=== PATIENT | female | born 1995 | race Caucasian/White ===

== ENCOUNTER 2020-02-14 10:53 | Outpatient (CLI) | payer OTHER, SELFPAY ==
--- NOTE | ~2020-02-14 | US_ITS ---
EXAMINATION: US breast LT limited HISTORY: Six-month follow-up for probably benign left breast mass TECHNIQUE: Limited left breast ultrasound is performed. COMPARISON: 08/10/2019 FINDINGS: The previously described hypoechoic mass at the 6:00 location 1 cm from the nipple now has a cystic appearance and is decreased in size measuring up to 3 mm, previously 7 mm. In addition, ther e is an adjacent 5 mm cyst. No suspicious sonographically detected mass is identified. IMPRESSION: Benign left breast cysts. Continued follow-up physical examination is recommended. BI-RADS Category 2: Benign finding(s). Reviewed, dictated and finalized at location A. IMPRESSION: Benign left breast cysts. Continued follow-up physical examination is recommend ed. BI-RADS Category 2: Benign finding(s).
== END 2020-02-14 10:54 | disposition home or self-care (01) ==
LOC: ANHIMG 10:54
PROVIDERS: Visit Provider Obstetrics & Gynecology
DX: N63.20 Unspecified lump in the left breast, unspecified quadrant (principal)
CPT/HCPCS: 76642

== ENCOUNTER 2020-02-21 17:39 | Outpatient (CLI) | payer OTHER, SELFPAY | END 2020-02-21 17:40 | disposition home or self-care (01) | PROVIDERS: Visit Provider Obstetrics & Gynecology | DX: R10.2 Pelvic and perineal pain (principal); Z01.812 Encounter for preprocedural laboratory examination | CPT/HCPCS: 36415; 86850; 86900; 86901 ==

== ENCOUNTER 2020-02-22 02:14 | Outpatient (CLI) | payer OTHER, SELFPAY ==
[2020-02-22 18:39] LABS: SARS-CoV-2 RNA PCR Negative
== END 2020-02-22 02:15 | disposition home or self-care (01) ==
LOC: ANHCOVIDDT 02:15
PROVIDERS: Visit Provider Obstetrics & Gynecology
DX: Z01.812 Encounter for preprocedural laboratory examination (principal); Z11.59 Encounter for screening for other viral diseases
CPT/HCPCS: 87635; C9803; U0003

== ENCOUNTER 2020-02-24 01:47 | Day surgery (SDC) | payer OTHER, SELFPAY ==
[2020-02-21 09:27] VITALS: BMI 17.9
--- NOTE | 2020-02-22 08:09 | PM.IMHP ---
H&P: HPI History of Present Illness Chief complaint: Pelvic Pain Narrative: Talita Caldera is a 24 year old female in presents for diagnostic laparoscopy secondary to pelvic pain and dyspareunia. She had negative STD testing and has free fluid noted on her ultrasound. She complains of pain with intercourse and premenstrual discomfort. Risks and benefits of this procedure reviewed including but not exclusive of , aspiration pneumonia, bleeding, transfusion, perforation injury to bowel, bladder, ureters, or other internal organs with need for open laparotomy. She voiced good understanding. She had all questions answered. She received the [employer] handout entitled laparoscopy. She asked to proceed Review of Systems Review of Systems: All systems reviewed & are unremarkable except as noted in HPI and below PMFSH Social History Social History Years smoked: 8 Smoking status: Current every day smoker Tobacco type: cigarettes Substance use: current Substance use type: marijuana Last use: 02/20/2020 Spiritual care concerns: No Meds Home Medications and Allergies Home Medications Medication Instructions Recorded Confirmed Type hydroxyzine pamoate 25 mg PO Q6H PRN 02/21/20 02/21/20 History Allergies Allergy/AdvReac Type Severity Reaction Status Date / Time No Known Allergies Allergy Verified 02/21/20 09:27 Exam Const: General: no acute distress Eyes: General: appearance normal, both eyes and all related structures Neck: Neck: supple and no JVD Thyroid: thyroid normal Resp: Effort & Inspection: normal respiratory effort Auscultation: clear to auscultation bilaterally Cardio: Rate: regular rate Rhythm: regular rhythm GI: Inspection: non-distended GI Palp: Yes Soft to palpation, No Tenderness to palpation present (GI) and No Guarding due to palpation present (GI) Auscultation: normal bowel sounds : General: Yes bladder normal to palpation External Female Exam: normal external appearance Speculum Exam - Vagina: normal appearance of the vagina Speculum Exam - Cervix: Cervical tenderness present Bimanual exam- vagina & uterus: Uterine tenderness Bimanual Exam- Adnexa, other: tender Skin: General skin exam: no rashes or lesions noted Extrem: General: normal to inspection and no edema Psych: Mental Status: mental status grossly normal Affect: normal affect Assessment and Plan Additional Plan impression: Pelvic pain Plan: Diagnostic laparoscopy
--- NOTE | 2020-02-24 02:38 | WPDHPUPDATE1 ---
History and Physical Update Update Date/Time: 02/24/20 02:38 History and Physical has been reviewed, including an updated exam of the patient. There are NO changes in the patient's condition. Risks, benefits, and alternatives have been discussed and questions answered. Patient agrees to proceed with procedure.
--- NOTE | 2020-02-24 11:17 | P.PNAN_ITS ---
Anes - Initial Pre Proc Eval Procedure: Operation Date: 02/24/20 12:30 Proposed Procedures p Diagnostic Laparoscopy - Guerrero Sher MD Date/Time: 02/24/20 11:17 Surgeon: Guerrero Sher MD Pre Op Diagnosis: Pelvic Pain Patient Data Age: 24 Gender: F Height: 1.57 m Weight: 44.8 kg Allergies Allergy/AdvReac Type Severity Reaction Status Date / Time No Known Allergies Allergy Verified 02/21/20 09:27 Home Medications Medication Instructions Recorded Confirmed Type hydroxyzine pamoate 25 mg PO Q6H PRN 02/21/20 02/21/20 History hydrocodone-acetaminophen [[place]] 1 tablet PO Q4H PRN #30 tablet 02/24/20 Rx Patient hx anesthesia problems: none Family hx anesthesia problems: none [facility] Past Medical History Medical History (Updated 02/24/20 @ 11:18 by Ernesto Richter MD) Anxiety Arthritis Social History Social History Years smoked: 8 Smoking status: Current every day smoker Tobacco type: cigarettes Substance use: current Substance use type: marijuana Last use: 02/20/2020 Spiritual care concerns: No Anes - Eval Final PreProcedure Day of Procedure 02/24/20 11:17 Patient weight: normal Heart: regular rate and rhythm Lungs: clear to auscultation and normal air movement Airway: Mallampati scale class II Neurological: alert and oriented Last oral intake: >/= 8 hours ASA classification: II Emergent: no Anesthetic plan: proceed Anesthesia type and monitoring: general ETT Informed Consent: The patient's anesthetic plan and its attendant risks and benefits were discussed with the patient/family/POA. Questions were solicited and answers provided to the satisfaction of the patient/family/POA.
[2020-02-24] MEDS: ACETAMINOPHEN 500 MG TABLET 1000 MG PO (11:24)
[2020-02-24] MEDS: KETOROLAC 15 MG/ML VIAL (*BKC) IV PUSH (11:24)
--- NOTE | 2020-02-24 12:39 | PM.PROC ---
Procedure Note - Detailed Date of procedure: 02/24/20 Pre-op diagnosis: Pelvic Pain Surgeon: Guerrero Sher MD postop diagnosis: Pelvic pain/ bilateral ovarian cysts Procedure: Laparoscopic destruction of bilateral ovarian cysts EBL: 5cc Anesthesia: General endotracheal Complications: None Findings: [id number] of serosanguineous fluid. Normal-appearing uterus and tubes. Bilateral ovarian cysts. Normal-appearing appendix Procedure description: The patient was prepped draped in the normal sterile fashion placed in the dorsal lithotomy position. Under excellent general endotracheal anesthesia weighted speculum was placed in the posterior fornix of vagina. Anterior lip of the cervix was grasped with a single-tooth tenaculum. Souza's cannula was inserted to the cervix and attached to the single-tooth. This was to be used later for uterine manipulation. Next the bladder was emptied of clear urine with a red rubber catheter. A weighted speculum was removed and the gloves were changed. An infraumbilical incision made. Veress needle passed in the abdomen. Abdomen was filled with CO2 gas [id number]. 5Mm trocar was advanced in the abdomen under direct visualization assuring no injury. Patient placed in Trendelenburg and a suprapubic incision made. The 5mm trocar was advanced under direct visualization assuring no injury. The serosanguineous fluid was suctioned and removed from the pelvis. Bilateral ovarian cysts were noted. These were opened in linear fashion and drained of serous fluid. Irrigation was then undertaken until clear. Photo documentation was undertaken. No other abnormalities were seen. The lower site was removed. The gas removed from the abdomen. The incisions closed with 4 O Monocryl and glue. All sponge, needle, instrument counts were correct. There were no immediate complications
[2020-02-24 12:50] VITALS: BP 111/84; PULSE 100; RESP 15; TEMP 36.4; O2SAT 100
[2020-02-24] MEDS: LACTATED RINGERS 1,000 ML 30 ML IV CONT ×2 (12:50)
[2020-02-24 13:05] VITALS: BP 110/82; PULSE 93; RESP 14; O2SAT 100
[2020-02-24 13:20] VITALS: BP 111/84; PULSE 75; RESP 12; O2SAT 100
[2020-02-24 13:30] VITALS: BP 112/71; PULSE 74; RESP 14
[2020-02-24 14:00] VITALS: BP 107/67; PULSE 67; RESP 14
[2020-02-24 14:30] VITALS: BP 104/64; PULSE 66; RESP 14
--- NOTE | 2020-02-24 18:00 | SUR.PHASEII ---
1400; PT AWAKE AND ALERT. STATES PAIN MILD AT 4/10. DENIES NEED FOR PAIN MEDICINE AT THIS TIME ITS NOT THAT BAD 1430; PT RESTING QUIETLY. 1450; PT DRESSED AND READY TO GO. WAITING ON RIDE. LEFT MESSAGE FOR SISTER. 1505; PT'S SISTER CALLED BACK, SHE IS ON HER WAY.
== END 2020-02-24 15:40 | disposition home or self-care (01) ==
PROVIDERS: Visit Provider Obstetrics & Gynecology
PROC: (CPT 49320; principal; 2020-02-24 12:30)
DX: R10.2 Pelvic and perineal pain (principal); N83.202 Unspecified ovarian cyst, left side; N83.201 Unspecified ovarian cyst, right side; N94.10 Unspecified dyspareunia; F41.9 Anxiety disorder, unspecified; M19.90 Unspecified osteoarthritis, unspecified site; F17.210 Nicotine dependence, cigarettes, uncomplicated
CPT/HCPCS: 58662; A9270; J0330; J1100; J1170; J1885; J2250; J2405; J2704; J3010; J7120

== ENCOUNTER 2022-02-15 12:39 | Emergency (ER) | payer OTHER, SELFPAY ==
--- NOTE | ~2022-02-15 | US_ITS ---
EXAMINATION: US OB <=14 wk fetus w TV INDICATION: Vaginal bleeding. GA by LMP 13 weeks 3 days. AMOS by LMP 08/20/2022. TECHNIQUE: Sonography of the pelvis was performed by transabdominal and transvaginal techniques. COMPARISON: None. RESULT: Uterus: - Orientation: Anteverted - Size: 11.8 x 10.4 x 9.3 cm - Myometrium: homogeneous echogenicity . Gestation: - Intrauterine gestational sac: Single present - Embryo: Single present - [place] rump length: 7.6 cm, corresponding gestational age 13 weeks, 5 days -Gestational heart rate: present 138 bpm -Subgestational hematoma: Absent Right ovary: -Not visualized Left ovary: -Not visualized Pelvis free fluid: None. IMPRESSION: Single, live intrauterine gestation. Marginal placenta. Ovaries not visualized. Estimated Gestational Age: 13 weeks, 5 days by crown rump length. AMOS by ultrasound 08/18/2022. Reviewed, dictated and finalized at location K. IMPRESSION: Single, live intrauterine gestation. Marginal placenta. Ovaries not visualized. Estimated Gestational Age: 13 weeks, 5 days by crown rump length. AMOS by ultra sound 08/18/2022.
[2022-02-15 12:41] VITALS: BP 128/61; PULSE 115; RESP 16; TEMP 36.5; O2SAT 99
[2022-02-15 12:50] VITALS: BP 105/77; PULSE 83; RESP 18; TEMP 36.6; O2SAT 100
[2022-02-15 13:40] LABS: Basophils Absolute Auto 0.1 K/mm3 (0.0-0.1); Basophils Percent Auto 0.3 % (0.2-1.2); Eosinophils Absolute Auto 0.2 K/mm3 (0-0.3); Eosinophils Percent Auto 1.3 % (0-4.4); Hematocrit 35.1 % (37.0-47.0); Hemoglobin 11.7 g/dL (12.0-15.0); Immature Granulocyte Absolute 0.08 K/mm3 (0.00-0.031); Immature Granulocyte Percent A 0.5 % (0-0.5); Lymphocytes Percent Auto 10.9 % (18.3-44.2); Mean Corpuscular HGB Conc 33.3 g/dl (32-36); Mean Corpuscular Hemoglobin 30.2 pg (26-34); Mean Corpuscular Volume 90.5 fl (80-100); Mean Platelet Volume 10.1 fl (7.4-10.4); Monocytes Absolute Auto 1.1 K/mm3 (0.1-0.6); Monocytes Percent Auto 6.4 % (2.6-8.5); Neutrophils Absolute Auto 13.2 K/mm3 (1.3-6.7); Neutrophils Percent Auto 80.6 % (45.5-73.1); Platelet Count Result 225 k/mm3 (150-375); Red Blood Count 3.88 M/mm3 (4.2-5.4); Red Cell Distribution Width 13.2 % (11.5-14.5); White Blood Count 16.5 K/mm3 (4.5-10.0)
[2022-02-15 14:10] VITALS: BP 92/62; PULSE 78
[2022-02-15 14:11] VITALS: BP 99/62; PULSE 86
[2022-02-15 14:12] VITALS: BP 97/60; PULSE 102
[2022-02-15] MEDS: SODIUM CHLORIDE 0.9% IV 1,000 ML 999 ML IV CONT (14:38)
--- NOTE | 2022-02-15 14:38 | ED.PREGNANCY ---
HPI - General Chief complaint: Vaginal Bleeding <Ila Olmos PA-C - Last Filed: 02/15/22 16:47> Stated complaint: 13 wks vag bleed <LIN Huynh Last Filed: 02/15/22 16:47> Time Seen by Provider: 02/15/22 13:21 <Ila Olmos PA-C - Last Filed: 02/15/22 16:47> Source: patient <LIN Huynh Last Filed: 02/15/22 16:47> Mode of arrival: ambulatory <LIN Huynh Last Filed: 02/15/22 16:47> Limitations: no limitations <LIN Huynh Last Filed: 02/15/22 16:47> History of Present Illness HPI Narrative: This is a 26-year-old , about 13 weeks , that presents to the emergency department for vaginal bleeding present this morning. Reports the blood was pink. It has slowed since onset. Associated with some mild intermittent cramping. Denies fever or vomiting. <Ila Olmos PA-C - Last Filed: 02/15/22 16:47> Related Data Home medications: Home Medications Medication Instructions Recorded Confirmed hydroxyzine pamoate 25 mg capsule 25 mg PO Q6H PRN Anxiety 02/21/20 02/21/20 <Ila Olmos PA-C - Last Filed: 02/15/22 16:47> Allergies/Adverse reactions: Allergies Allergy/AdvReac Type Severity Reaction Status Date / Time No Known Allergies Allergy Verified 02/15/22 12:52 <Ila Olmos PA-C - Last Filed: 02/15/22 16:47> Review of Systems Review of Systems: CONSTITUTIONAL: Denies fever GASTROINTESTINAL: Denies abdominal pain, nausea, vomiting GENITOURINARY: Reports dysuria <LIN Huynh Last Filed: 02/15/22 16:47> All systems reviewed & are unremarkable except as noted in HPI and below <LIN Huynh Last Filed: 02/15/22 16:47> [facility] Past Medical History Medical History: Medical History (Updated 02/15/22 @ 16:44 by Ila Olmos PA-C) Anxiety Arthritis <Ila Olmos PA-C - Last Filed: 02/15/22 16:47> Social History Social History: Social History (Updated 02/15/22 @ 14:40 by Ila Olmos PA-C) Years smoked: 8 Smoking status: Former smoker Tobacco type: cigarettes Substance use: current Substance use type: marijuana Last use: 02/20/2020 Spiritual care concerns: No <Ila Olmos PA-C - Last Filed: 02/15/22 16:47> Exam Narrative: GENERAL: Well-appearing, well-nourished, and in no acute distress. HEAD: Normocephalic, atraumatic. EYES: EOMI. CHEST: Clear to auscultation. No respiratory distress. No wheezes rales or rhonchi HEART: Regular rate and rhythm. No murmur heard. Normal peripheral pulses. ABDOMEN: Soft, nontender, nondistended, normal active bowel sounds. No CVA tenderness EXTREMITIES: Normal range of motion. No edema. SKIN: Warm, dry, no rash. NEURO: No focal deficits. Alert and oriented x3. PSYCH: Normal mood and affect <Ila Olmos PA-C - Last Filed: 02/15/22 16:47> Course BAT LATHE OPERATOR/PA Physician Supervision For this patient encounter, I reviewed the BAT LATHE OPERATOR or PA documentation, treatment plan, and medical decision making <uHmble Brooks MD - Last Filed: 02/15/22 18:22> Consultations Consultation #1: Spoke with Dr. Morales about patient and work-up who will follow-up in clinic. <Ila Olmos PA-C - Last Filed: 02/15/22 16:47> Date: 02/15/22 <Ila Olmos PA-C - Last Filed: 02/15/22 16:47> Time: 16:47 <Ila Olmos PA-C - Last Filed: 02/15/22 16:47> Vital Signs Vital signs: Vital Signs Temperature 97.7 F 02/15/22 12:41 Pulse Rate 115 H 02/15/22 12:41 Respiratory Rate 16 02/15/22 12:41 Blood Pressure 128/61 02/15/22 12:41 Pulse Oximetry 99 02/15/22 12:41 Temperature 97.8 F 02/15/22 12:50 Pulse Rate 83 02/15/22 17:08 Respiratory Rate 16 02/15/22 17:08 Blood Pressure 98/63 L 02/15/22 17:08 Pulse Oximetry 100 02/15/22 17:08 Oxygen Delivery Room Air 02/15/22 12:50 <Ila Olmos PA-C - Last Filed:
[2022-02-15 14:45] LABS: Appearance Urine Slightly Cloudy (Clear); Bilirubin Urine Negative (Negative); Blood Urine 2+ (Negative); Color Urine Yellow (Yellow); Glucose Urine UA Negative (Negative); Ketones Urine Negative (Negative); Leukocyte Esterase Ur 2+ LEU/UL (Negative); Nitrate Urine Negative (Negative); Protein Urine Negative (Negative)
[2022-02-15 14:48] LABS: Add Urine Microscopic? YES
[2022-02-15 14:55] LABS: Bacteria Urine Trace /hpf; Mucus Urine Rare /lpf; Squamous Epithelial Cell Urine Many /hpf (Few); WBC Urine 51-75 /hpf
[2022-02-15 17:08] VITALS: BP 98/63; PULSE 83; RESP 16; O2SAT 100
== END 2022-02-15 17:10 | disposition home or self-care (01) ==
PROVIDERS: Physician Assistant; Emergency Provider Emergency Medicine
DX: O20.9 Hemorrhage in early pregnancy, unspecified (principal); O23.11 Infections of bladder in pregnancy, first trimester; N30.00 Acute cystitis without hematuria; Z3A.13 13 weeks gestation of pregnancy; M19.90 Unspecified osteoarthritis, unspecified site; Z87.891 Personal history of nicotine dependence
CPT/HCPCS: 36415; 76801; 76817; 81001; 84702; 85025; 85461; 87086; 96360; 99284; J7030

== ENCOUNTER 2022-02-16 06:14 | Emergency (ER) | payer OTHER, SELFPAY ==
--- NOTE | ~2022-02-16 | US_ITS ---
US OB <= 14 weeks fetus DATE: 02/16/2022 08:10 INDICATION: Worsening uterine bleeding and pelvic shift TECHNIQUE: Real-time imaging via transabdominal approach COMPARISON: 02/15/2022 obstetrical ultrasound FINDINGS: The uterus measures approximately 14 mm height, up to 9 cm AP dimension. Live [place] intrauterine gestation with heart rate of 153 bpm. Anterior placenta. No retropl acental hemorrhage is identified. The ovaries are not visualized. No abnormal pelvic free fluid collection is detected. [place]-rump length measurement of 8.02 cm is consistent with 14 weeks estimated gestational age +/- 1 week 2 days. IMPRESSION: No significant abnormality Reviewed, dictated and finalized at Location A. Reviewed, dictated and finalized at location A. IMPRESSION: No significant abnormality
[2022-02-16 06:39] VITALS: BP 114/76; PULSE 98; RESP 25; O2SAT 100
[2022-02-16 06:43] LABS: Basophils Absolute Auto 0.1 K/mm3 (0.0-0.1); Basophils Percent Auto 0.3 % (0.2-1.2); Eosinophils Absolute Auto 0.2 K/mm3 (0-0.3); Eosinophils Percent Auto 1.2 % (0-4.4); Hematocrit 36.2 % (37.0-47.0); Hemoglobin 12.2 g/dL (12.0-15.0); Immature Granulocyte Percent A 0.6 % (0-0.5); Lymphocytes Absolute Auto 2.09 K/mm3 (0.9-3.2); Lymphocytes Percent Auto 11.6 % (18.3-44.2); Mean Corpuscular HGB Conc 33.7 g/dl (32-36); Mean Corpuscular Volume 88.9 fl (80-100); Mean Platelet Volume 10.3 fl (7.4-10.4); Monocytes Absolute Auto 1.2 K/mm3 (0.1-0.6); Monocytes Percent Auto 6.7 % (2.6-8.5); Neutrophils Absolute Auto 14.4 K/mm3 (1.3-6.7); Neutrophils Percent Auto 79.6 % (45.5-73.1); Platelet Count Result 268 k/mm3 (150-375); Red Blood Count 4.07 M/mm3 (4.2-5.4); Red Cell Distribution Width 13.1 % (11.5-14.5)
[2022-02-16] MEDS: SODIUM CHLORIDE 0.9% IV 1,000 ML 999 ML IV CONT (07:32)
--- NOTE | 2022-02-16 07:50 | ED.GENADULT ---
HPI - General Adult General Chief complaint: Vaginal Bleeding <Hubmle Brooks MD - Last Filed: 02/16/22 17:22> Stated complaint: 13 wks preg, vag bleed <Humble Brooks MD - Last Filed: 02/16/22 17:22> Time Seen by Provider: 02/16/22 06:40 <Humble Brooks MD - Last Filed: 02/16/22 17:22> History of Present Illness HPI narrative: 18-year-old female who is approximately 14 weeks and follows up with Dr. Edgar Price presents to the emergency department for evaluation of worsening abdominal pain. Patient was evaluated emergency department yesterday and was diagnosed with a urinary tract infection. Patient states that the time she was having some vaginal spotting. Patient states she was awoken from her sleep with increased lower abdominal pain and uterine cramping. Patient states she has had increased vaginal bleeding. Patient states she has not yet started her antibiotic. <Humble Brooks MD - Last Filed: 02/16/22 17:22> Related Data Home medications: Home Medications Medication Instructions Recorded Confirmed hydroxyzine pamoate 25 mg capsule 25 mg PO Q6H PRN Anxiety 02/21/20 02/21/20 <Humble Brooks MD - Last Filed: 02/16/22 17:22> Allergies/adverse reactions: Allergies Allergy/AdvReac Type Severity Reaction Status Date / Time No Known Allergies Allergy Verified 02/15/22 12:52 <Humble Brooks MD - Last Filed: 02/16/22 17:22> Review of Systems Review of Systems: CONSTITUTIONAL: Denies fever, chills, or sweats. EYES: Denies visual changes, redness, or discharge. ENT: Denies rhinorrhea, congestion, sore throat, or otalgia. CARDIOVASCULAR: Denies chest pain, palpitations, or edema. RESPIRATORY: Denies cough or dyspnea. GASTROINTESTINAL: See HPI GENITOURINARY: See HPI SKIN: Denies rash or itching. MUSCULOSKELETAL: Denies back pain, joint pain, or myalgia. NEUROLOGIC: Denies headache, numbness, or weakness. <Humble Brooks MD - Last Filed: 02/16/22 17:22> [facility] Past Medical History Medical History: Medical History (Updated 02/16/22 @ 11:03 by Humble Brooks MD) Anxiety Arthritis <Humble Brooks MD - Last Filed: 02/16/22 17:22> Social History Social History: Social History (Updated 02/15/22 @ 14:40 by Ila Olmos PA-C) Years smoked: 8 Smoking status: Former smoker Tobacco type: cigarettes Substance use: current Substance use type: marijuana Last use: 02/20/2020 Spiritual care concerns: No <Humble Brooks MD - Last Filed: 02/16/22 17:22> Exam Narrative: APPEARANCE: Well appearing, no pain, no distress, well-nourished. HEAD: normocephalic, atraumatic. EYES: PERRLA/EOMI, conjunctivae clear. NOSE: Normal no drainage NECK: Supple. No adenopathy, no masses. RESPIRATORY: Airway patent, respirations nonlabored. Clear to auscultation bilaterally, no rales, rhonchi, wheezing. CARDIOVASCULAR: Regular rate and rhythm without murmurs rubs or gallops. ABDOMINAL: Soft, lower abdominal tenderness to palpation. MUSCULOSKELETAL: Moves all extremities. Strength/ROM intact, No edema, No calf tenderness. NEURO: Alert. Cranial nerves II through XII intact. SKIN: Warm, dry. Normal Color PSYCHIATRIC: Normal affect/mood. <Humble Brooks MD - Last Filed: 02/16/22 17:22> APPEARANCE: Well appearing, no pain, no distress, well-nourished. HEAD: normocephalic, atraumatic. EYES: PERRLA/EOMI, conjunctivae clear. NOSE: Normal no drainage NECK: Supple. No adenopathy, no masses. RESPIRATORY: Airway patent, respirations nonlabored. Clear to auscultation bilaterally, no rales, rhonchi, wheezing. CARDIOVASCULAR: Regular rate and rhythm without murmurs rubs or gallops. ABDOMINAL: Soft, lower abdominal tenderness to palpation. MUSCULOSKELETAL: Moves all extremities. Strength/ROM intact, No edema, No calf tenderness. NEURO: Alert. Cranial nerves II through XII intact. SKIN: Warm, dry. Normal Color PSYCHIATRIC: Normal affect/mood. PELVIC: N
== END 2022-02-16 11:36 | disposition home or self-care (01) ==
PROVIDERS: Emergency Medicine; Emergency Provider Emergency Medicine
DX: O20.9 Hemorrhage in early pregnancy, unspecified (principal); O26.892 Other specified pregnancy related conditions, second trimester; R10.9 Unspecified abdominal pain; O99.342 Other mental disorders complicating pregnancy, second trimester; F41.9 Anxiety disorder, unspecified; O99.891 Other specified diseases and conditions complicating pregnancy; M19.90 Unspecified osteoarthritis, unspecified site; Z3A.14 14 weeks gestation of pregnancy
CPT/HCPCS: 36415; 76801; 84702; 85025; 85461; 86850; 86900; 86901; 86920; 96361; 96365; 99284; J0131; J7030

== ENCOUNTER 2022-02-17 09:30 | Observation (INO) | payer OTHER, SELFPAY ==
[2022-02-17] VITALS (56 sets, daily range): BP systolic 88–109; BP diastolic 45–78; PULSE 51–146; RESP 9–35; TEMP 36.3–37.6; O2SAT 82–100; BMI 19.8
--- NOTE | ~2022-02-17 | US_ITS ---
EXAMINATION: US OB <= 14 weeks fetus DATE: 02/17/2022 10:45 INDICATION: Vaginal bleeding. TECHNIQUE: Real-time transabdominal pelvic ultrasound was performed. COMPARISON: Ultrasound 02/16/2022, 02/15/2022 FINDINGS: The uterus measures 15.8 x 7.4 x 7.9 cm. There is a gestational sac in the cervix. The crown ru mp length measures 7.6 cm, which correlates with an estimated gestational age of 13 weeks and 5 day(s ) (+/-) 1 week(s) and 2 day(s). heart motion is identified measuring 133 beats per minute (bpm) by M-mode Doppler. There is thickening of the endometrial complex to 5.2 cm, consistent with hematom a. The ovaries are not visualized. There is no free fluid in the pelvis. IMPRESSION: 1. New hematoma in the endometrial complex with interval displacement of the gestational sac with li ving fetus to the cervix. Reviewed, dictated and finalized at location A. IMPRESSION: 1. New hematoma in the endometrial complex with interval displacement of the g estational sac with living fetus to the cervix.
--- NOTE | 2022-02-17 09:44 | ED.FEMALEGU ---
HPI - Female Genitourinary General Chief complaint: Vaginal Bleeding <LIN Talley Last Filed: 02/17/22 19:05> Stated complaint: vaginal bleeding <LIN Talley Last Filed: 02/17/22 19:05> Time Seen by Provider: 02/17/22 09:33 <LIN Talley Last Filed: 02/17/22 19:05> Source: patient and old records reviewed <LIN Talley Last Filed: 02/17/22 19:05> Mode of arrival: ambulatory <LIN Talley Last Filed: 02/17/22 19:05> Limitations: no limitations <LIN Talley Last Filed: 02/17/22 19:05> History of Present Illness HPI Narrative: Patient is a 26 y/o female, , who presents to the ED with c/o vaginal bleeding. Patient is approximately 14 weeks gestation. She has been seen in the ED the past 2 days for abdominal pain and vaginal spotting and was diagnosed with UTI. This morning, the bleeding and pain became more significant and heavy. Pain contraction-like, with severe cramping every few minutes in lower abdomen and lower back. She passed one large blood clot on the ED stretcher upon arrival. She denies passing any large clots at home prior to her arrival. Denies any fever, chills, N/V. Has not taken anything for pain prior to arrival. Has not started antibiotics still for UTI. Patient's OBGYN is Dr. Edgar Price. <LIN Talley Last Filed: 02/17/22 19:05> Related Data Home medications: Home Medications Medication Instructions Recorded Confirmed hydroxyzine pamoate 25 mg capsule 25 mg PO Q6H PRN Anxiety 02/21/20 02/21/20 <LIN Talley Last Filed: 02/17/22 19:05> Allergies/Adverse reactions: Allergies Allergy/AdvReac Type Severity Reaction Status Date / Time No Known Allergies Allergy Verified 02/15/22 12:52 <LIN Talley Last Filed: 02/17/22 19:05> Review of Systems Review of Systems: CONSTITUTIONAL: Denies fever, chills, or sweats. CARDIOVASCULAR: Denies chest pain. RESPIRATORY: Denies dyspnea. GASTROINTESTINAL: Reports lower abdominal cramping. Denies nausea, vomiting. GENITOURINARY: Reports vaginal bleeding with clots. Denies dysuria or hematuria. MUSCULOSKELETAL: Reports low back pain. <Nely Marin PA-C - Last Filed: 02/17/22 19:05> All systems reviewed & are unremarkable except as noted in HPI and below <Nely Marin PA-C - Last Filed: 02/17/22 19:05> PMFSH Past Medical History Medical History: Medical History (Updated 02/17/22 @ 13:17 by Nely Marin PA-C) Anxiety Arthritis Sponge kidney <Nely Marin PA-C - Last Filed: 02/17/22 19:05> Surgical History Surgical History: Surgical History (Updated 02/17/22 @ 18:55 by Nely Marin PA-C) History of D&C <Nely Marin PA-C - Last Filed: 02/17/22 19:05> Social History Social History: Social History Years smoked: 8 Smoking status: Former smoker Tobacco type: cigarettes Substance use: current Substance use type: marijuana Last use: 02/20/2020 Spiritual care concerns: No <Nely Marin PA-C - Last Filed: 02/17/22 19:05> Exam Narrative: GENERAL: Well appearing, well-nourished, non-toxic, in moderate acute distress. HEAD: Normocephalic, atraumatic. NECK: Supple. No adenopathy, no masses. RESPIRATORY: Airway patent, respirations nonlabored. Clear to auscultation bilaterally, no rales, rhonchi, wheezing. CARDIOVASCULAR: Tachycardic w/ regular rhythm without murmurs, rubs, or gallops. Peripheral pulses 2+ and equal bilaterally. ABDOMINAL: Soft, tenderness to palpation in lower abdomen, nondistended, no hepatosplenomegaly. Normoactive BS. MUSCULOSKELETAL: Moves all extremities. Strength/ROM intact without gross deformities. SKIN: Warm, dry, normal color. No rashes. NEURO: A&O X3. Speech clear. Cranial nerves II-XII grossly intact. Steady gait. No ataxic movements. PSYCHIATRIC: Appropriate mood and affect. [place]
[2022-02-17] MEDS: SODIUM CHLORIDE 0.9% IV 1,000 ML 999 ML IV CONT ×3 (09:49→12:45)
[2022-02-17] MEDS: ONDANSETRON INJ 4 MG/2 ML VIAL IV PUSH (09:49)
[2022-02-17 10:00] LABS: Hematocrit 36.1 % (37.0-47.0); Hemoglobin 12.1 g/dL (12.0-15.0); Mean Corpuscular HGB Conc 33.5 g/dl (32-36); Mean Corpuscular Hemoglobin 30.5 pg (26-34); Mean Corpuscular Volume 90.9 fl (80-100); Mean Platelet Volume 10.5 fl (7.4-10.4); Platelet Count Result 227 k/mm3 (150-375); Red Blood Count 3.97 M/mm3 (4.2-5.4); Red Cell Distribution Width 12.9 % (11.5-14.5); White Blood Count 18.8 K/mm3 (4.5-10.0)
[2022-02-17] MEDS: MORPHINE SULFATE (*CRX) 4 MG/ML INJ IV PUSH (10:19)
[2022-02-17 10:28] LABS: Alanine Aminotransferase 14 U/L (6-35); Albumin Level 3.5 g/dL (3.5-5.1); Alkaline Phosphatase 81 U/L (38-126); Anion Gap 9 mmol/L (8-16); Aspartate Amino Transferase 21 U/L (14-36); Bilirubin,Total 0.5 mg/dL (0.2-1.3); Blood Urea Nitrogen 8 mg/dL (7-17); Calcium 8.3 mg/dL (8.4-10.2); Carbon Dioxide 19 mmol/L (22-30); Chloride 104 mmol/L (98-107); Estimated Glomerular Filt Rate > 60; Glucose 130 mg/dL (65-110); Sodium 132 mmol/L (137-145)
[2022-02-17 11:01] LABS: Band Neutrophils Percent 23 % (0-6); Lymphocytes Absolute Manual 1.12 K/mm3 (1.1-4.5); Lymphocytes Percent Manual 6 % (18-44); Monocytes Absolute Manual 0.56 K/mm3 (0.1-0.90); Monocytes Percent Manual 3 % (3-9); Neutrophils Percent Manual 68 % (46-73); Platelet Estimate Adequate (Adequate); Total Cells Counted 100
[2022-02-17 11:02] LABS: Hyperchromasia 1+ (NORMAL)
[2022-02-17] MEDS: HYDROmorphone HCL INJ (*CRX) 1 MG/ML SYR IV PUSH (11:20)
--- NOTE | 2022-02-17 12:00 | PM.IMHP ---
H&P: HPI History of Present Illness Date/Time: 02/17/22 12:00 Chief Complaint: Bleeding and cramping in Narrative: 26 y/o at 14 weeks gestation presenting with cramping and bleeding. Blood type Bpos. Ultrasound showed gestational sac and embryo in the cervix. Review of Systems Review of Systems: All systems reviewed & are unremarkable except as noted in HPI and below PMFSH Past Medical History Medical History (Updated 02/17/22 @ 12:04 by Jordy Morales MD) Anxiety Arthritis Sponge kidney Surgical History Surgical History History of D&C No pertinent past surgical history Social History Social History Years smoked: 8 Smoking status: Former smoker Tobacco type: cigarettes Substance use: current Substance use type: marijuana Last use: 02/20/2020 Spiritual care concerns: No Meds Home Medications and Allergies Home Medications Medication Instructions Recorded Confirmed Type hydroxyzine pamoate 25 mg capsule 25 mg PO Q6H PRN Anxiety 02/21/20 02/21/20 History hydrocodone 5 mg-acetaminophen 325 1 tablet PO Q4H PRN pain #30 tabs 02/24/20 Rx mg tablet ([place]) Allergies Allergy/AdvReac Type Severity Reaction Status Date / Time No Known Allergies Allergy Verified 02/15/22 12:52 Vital Signs Vital Signs - 24 hr 02/17/22 09:42 02/17/22 09:45 02/17/22 09:49 Pulse Rate 130 H 139 H 121 H Respiratory Rate 26 H 29 H 26 H Blood Pressure 109/63 Pulse Oximetry 99 99 100 02/17/22 10:19 02/17/22 10:39 02/17/22 10:45 Pulse Rate 99 99 89 Respiratory Rate 30 H 20 16 Blood Pressure Pulse Oximetry 100 100 100 02/17/22 11:23 Pulse Rate 91 Respiratory Rate 12 Blood Pressure 99/65 L Pulse Oximetry 100 Exam : Other: Speculum exam: Gestational sac in vaginal vault. This was grasped with a ring forceps. Sac ruptured with clear fluid. Embryo delivered spontaneously. Placenta was grasped with ring forceps and delivered intact. Bedside ultrasound exam transabdominally showed empty uterus afterward. Hemostasis good. EBL 150 mL. H&P: Results Labs Labs: Short CBC 02/17/22 Range/Units 09:47 WBC 18.8 H (4.5-10.0) K/mm3 Hgb 12.1 (12.0-15.0) g/dL Hct 36.1 L (37.0-47.0) % Plt Count 227 (150-375) k/mm3 BMP 02/17/22 10:12 Sodium 132 L Potassium 3.0 L Chloride 104 Carbon Dioxide 19 L BUN 8 Creatinine 0.50 L Glucose 130 H Calcium 8.3 L Liver Function 02/17/22 Range/Units 10:12 Total Bilirubin 0.5 (0.2-1.3) mg/dL AST 21 (14-36) U/L ALT 14 (6-35) U/L Alkaline Phosphatase 81 (38-126) U/L Albumin 3.5 (3.5-5.1) g/dL Assessment and Plan Assessment and plan (1) Spontaneous : Code(s): O03.9 - Complete or unspecified spontaneous without complication Status: Acute Assessment and Plan: A: SAB at 14 weeks, completed. P: Reviewed instructions, precautions in detail. Home to f/u 1-2 weeks in office.
[2022-02-17 12:58] LABS: Hematocrit 26.4 % (37.0-47.0); Hemoglobin 9.1 g/dL (12.0-15.0)
[2022-02-17] MEDS: miSOPROStol 200 MCG TABLET 800 MCG RECTAL (13:08)
[2022-02-17] MEDS: POTASSIUM CHLORIDE INJ 40 MEQ in SODIUM CHLORIDE 0.9% IV 500 ML 130 MEQ IVPB (13:18)
--- NOTE | 2022-02-17 14:30 | OBADM ---
This patient, Talita Caldera, admitted to the OB room OB Post 111 for observation. Patient/family oriented to hospital policies and general routines including ID bracelet, bed and alarms, visiting hours, pain management, procedures, bathroom and other care routines, personal items, smoking policy, room service/diet, and visiting hours. Patient/Family are encouraged to report perceived risks to care and to ask questions if they do not understand what they are told or what they should do.
[2022-02-17] MEDS: SODIUM CHLORIDE 0.9% IV 1,000 ML 100 ML IV CONT ×2 (14:48→20:01)
[2022-02-17 17:03] LABS: Hematocrit 20.7 % (37.0-47.0)
--- NOTE | 2022-02-17 18:39 | PC.NURSE ---
Dr. Morales at bedside to discuss plan of care patient verbalizes understanding.
--- NOTE | 2022-02-17 18:46 | PM.GYNPNOP ---
COORDINATE MEASURING MACHINE PROGRAMMER - A/P Assessment and plan (1) Spontaneous in first trimester: Code(s): O03.9 - Complete or unspecified spontaneous without complication Status: Acute Assessment and Plan: A: S/p complete spontaneous at 14 weeks, with associated hemorrhage and resultant anemia. P: Observe overnight. I offered 1 unit PRBC. Reviewed risks, benefits and alternatives in detail. She and her partner agree. (2) Acute blood loss anemia: Code(s): D62 - Acute posthemorrhagic anemia Status: Acute Time Spent With Patient Time with patient: less than 15 minutes COORDINATE MEASURING MACHINE PROGRAMMER- PN:Subj Post-Op Subjective Date/time seen: 02/17/22 18:46 Has headache. No shortness of breath or chest pain. Bleeding was brisk before arrival and for a while in the ED, but has really tapered now. Pain is OK. Was asking for food. COORDINATE MEASURING MACHINE PROGRAMMER - PN: Obj Data Vital Signs Vital Signs: Vital Signs - 24 hr 02/17/22 09:42 02/17/22 09:45 02/17/22 09:49 Temperature Pulse Rate 130 H 139 H 121 H Respiratory Rate 26 H 29 H 26 H Blood Pressure 109/63 Pulse Oximetry 99 99 100 Oxygen Delivery 02/17/22 10:19 02/17/22 10:39 02/17/22 10:45 Temperature Pulse Rate 99 99 89 Respiratory Rate 30 H 20 16 Blood Pressure Pulse Oximetry 100 100 100 Oxygen Delivery 02/17/22 11:23 02/17/22 11:09 02/17/22 11:15 Temperature Pulse Rate 91 107 H 118 H Respiratory Rate 12 27 H 23 H Blood Pressure 99/65 L Pulse Oximetry 100 100 100 Oxygen Delivery 02/17/22 11:24 02/17/22 11:30 02/17/22 11:31 Temperature Pulse Rate 95 97 89 Respiratory Rate 9 L 25 H 19 Blood Pressure 99/65 L 103/71 Pulse Oximetry 99 97 100 Oxygen Delivery 02/17/22 11:51 02/17/22 12:21 02/17/22 13:31 Temperature Pulse Rate 92 110 H 113 H Respiratory Rate 21 H 17 24 H Blood Pressure 91/62 L Pulse Oximetry 99 Oxygen Delivery 02/17/22 12:51 02/17/22 13:16 02/17/22 13:46 Temperature Pulse Rate 112 H 139 H 97 Respiratory Rate 21 H 35 H 16 Blood Pressure 92/56 L Pulse Oximetry 100 100 Oxygen Delivery 02/17/22 13:47 02/17/22 14:00 02/17/22 14:01 Temperature Pulse Rate 101 H 107 H 111 H Respiratory Rate 18 17 19 Blood Pressure 91/57 L Pulse Oximetry 99 100 97 Oxygen Delivery 02/17/22 14:20 02/17/22 14:21 02/17/22 16:41 Temperature Pulse Rate 146 H 104 H Respiratory Rate Blood Pressure 105/78 89/47 L Pulse Oximetry 82 L Oxygen Delivery 02/17/22 14:30 02/17/22 16:30 02/17/22 14:30 Temperature 36.9 C 36.3 C L Pulse Rate Respiratory Rate Blood Pressure Pulse Oximetry Oxygen Delivery Room Air Intake/Output Intake/Output: Intake & Output 02/14/22 02/15/22 02/16/22 02/17/22 23:59 23:59 23:59 23:59 Intake Total 3100 Balance 3100 Meds/Results Medications: Active Medications Generic Name Dose Route Start Last Admin Trade Name Freq PRN Reason Stop Dose Admin Sodium Chloride 1,000 mls @ 100 mls/hr 02/17/22 14:48 02/17/22 14:48 Normal Saline Iv IV CONT 100 mls/hr .Q10H [place] Administration Radiology Results: ITS Impressions Ultrasound 02/17/22 10:48 IMPRESSION: 1. New hematoma in the endometrial complex with interval displacement of the gestational sac with living fetus to the cervix. Labs CBC & Chem 7: 02/17/22 16:41 02/17/22 10:12 Labs: Laboratory Results - last 24 hr 02/17/22 02/17/22 02/17/22 09:47 09:49 10:12 WBC 18.8 H RBC 3.97 L Hgb 12.1 Hct 36.1 L MCV 90.9 MCH 30.5 MCHC 33.5 RDW 12.9 Plt Count 227 MPV 10.5 H Immature Gran % (Auto) Not Reportable Neut % (Auto) Not Reportable Lymph % (Auto) Not Reportable [place] % (Auto) Not Reportable Eos % (Auto) Not Reportable Baso % (Auto) Not Reportable Lymph # (Auto) Not Reportable [place] # (Auto) Not Reportable Eos # (Auto) Not Reportable Baso # (Aut
[2022-02-17] MEDS: ACETAMINOPHEN 500 MG TABLET 1000 MG PO (21:28)
[2022-02-18 00:40] VITALS: RESP 16; TEMP 36.6
[2022-02-18 00:44] VITALS: BP 94/52; PULSE 87
[2022-02-18 00:59] LABS: Hematocrit 22.3 % (37.0-47.0); Hemoglobin 7.4 g/dL (12.0-15.0)
--- NOTE | 2022-02-18 02:06 | PC.NURSE ---
Discussed plan of care with pt for additional blood transfusion. Pt states she feels much better and declines transfusion at this time. Will continue to monitor.
[2022-02-18 04:36] VITALS: PULSE 88; O2SAT 95
[2022-02-18 04:37] VITALS: BP 91/50; PULSE 84; PULSE 86; PULSE 87; O2SAT 94; O2SAT 95
[2022-02-18 04:39] VITALS: BP 91/50; PULSE 84; RESP 14; TEMP 36.6; O2SAT 96
[2022-02-18] MEDS: ACETAMINOPHEN 500 MG TABLET 1000 MG PO (06:37)
[2022-02-18 06:40] VITALS: BP 106/58; PULSE 95; RESP 18; TEMP 36.8
--- NOTE | 2022-02-18 07:35 | PC.NURSE ---
Pt states headache has resolved. Denies any other needs at this time. Yesenia(SHARE) at bedside with pt at this time.
--- NOTE | 2022-02-18 08:50 | PC.NURSE ---
in dept, report given. NNO's at this time. going to see pt.
--- NOTE | 2022-02-18 09:03 | PM.GYNPNOP ---
BUSINESS AGENT - A/P Assessment and plan (1) Spontaneous in first trimester: Code(s): O03.9 - Complete or unspecified spontaneous without complication Status: Acute Assessment and Plan: A: SAB completed. Bleeding minimal. P: Home to f/u 2 weeks. Iron supplementation. We reviewed instructions and precautions in detail. She is considering restarting her antidepressant and contacting the prescriber, her PCP. (2) Acute blood loss anemia: Code(s): D62 - Acute posthemorrhagic anemia Status: Acute Time Spent With Patient Time: Total time spent is greater than 50% in coordination of care (as documented) at patient's floor/unit and/or counseling patient: Time with patient: less than 15 minutes BUSINESS AGENT- PN:Selena Post-Op Subjective Date/time seen: 02/18/22 09:03 Feels better this morning. Intermittent headache responds to Tylenol. She received one unit of PRBC, declined a second. Has minimal vaginal bleeding. She says she has a prescription for an antidepressant at home but doesn't take it. Would like to go home. Exam GI: Other: ABD soft, nontender Extrem: Other: EXT nontender, no edema BUSINESS AGENT - PN: Obj Data Vital Signs Vital Signs: Vital Signs - 24 hr 02/17/22 09:42 02/17/22 09:45 02/17/22 09:49 Temperature Pulse Rate 130 H 139 H 121 H Respiratory Rate 26 H 29 H 26 H Blood Pressure 109/63 Pulse Oximetry 99 99 100 Oxygen Delivery 02/17/22 10:19 02/17/22 10:39 02/17/22 10:45 Temperature Pulse Rate 99 99 89 Respiratory Rate 30 H 20 16 Blood Pressure Pulse Oximetry 100 100 100 Oxygen Delivery 02/17/22 11:23 02/17/22 11:09 02/17/22 11:15 Temperature Pulse Rate 91 107 H 118 H Respiratory Rate 12 27 H 23 H Blood Pressure 99/65 L Pulse Oximetry 100 100 100 Oxygen Delivery 02/17/22 11:24 02/17/22 11:30 02/17/22 11:31 Temperature Pulse Rate 95 97 89 Respiratory Rate 9 L 25 H 19 Blood Pressure 99/65 L 103/71 Pulse Oximetry 99 97 100 Oxygen Delivery 02/17/22 11:51 02/17/22 12:21 02/17/22 13:31 Temperature Pulse Rate 92 110 H 113 H Respiratory Rate 21 H 17 24 H Blood Pressure 91/62 L Pulse Oximetry 99 Oxygen Delivery 02/17/22 12:51 02/17/22 13:16 02/17/22 13:46 Temperature Pulse Rate 112 H 139 H 97 Respiratory Rate 21 H 35 H 16 Blood Pressure 92/56 L Pulse Oximetry 100 100 Oxygen Delivery 02/17/22 13:47 02/17/22 14:00 02/17/22 14:01 Temperature Pulse Rate 101 H 107 H 111 H Respiratory Rate 18 17 19 Blood Pressure 91/57 L Pulse Oximetry 99 100 97 Oxygen Delivery 02/17/22 14:20 02/17/22 14:21 02/17/22 16:41 Temperature Pulse Rate 146 H 104 H Respiratory Rate Blood Pressure 105/78 89/47 L Pulse Oximetry 82 L Oxygen Delivery 02/17/22 20:06 02/17/22 20:07 02/17/22 20:12 Temperature Pulse Rate 114 H Respiratory Rate Blood Pressure 88/45 L Pulse Oximetry 96 98 Oxygen Delivery 02/17/22 20:13 02/17/22 20:17 02/17/22 20:22 Temperature Pulse Rate 115 H Respiratory Rate Blood Pressure 100/52 L Pulse Oximetry 98 100 Oxygen Delivery 02/17/22 20:27 02/17/22 20:28 02/17/22 20:32 Temperature Pulse Rate 108 H Respiratory Rate Blood Pressure 95/53 L Pulse Oximetry 100 100 Oxygen Delivery 02/17/22 20:35 02/17/22 20:40 02/17/22 20:42 Temperature Pulse Rate Respiratory Rate Blood Pressure Pulse Oximetry 96 99 100 Oxygen Delivery 02/17/22 20:47 02/17/22 20:52 02/17/22 20:57 Temperature Pulse Rate Respiratory Rate Blood Pressure Pulse Oximetry 100 99 100 Oxygen Delivery 02/17/22 20:59 02/17/22 21:02 02/17/22 21:07 Temperature Pulse Rate 111 H Respiratory Rate Blood Pressure 102/54 L Pulse Oximetry 100 100 Oxygen Delivery 02/17/22 21:12 02/17/22 21:17 02/17/22 21:22 Temperature Pulse Rate Respiratory Rate Blood Pressure Pu
--- NOTE | 2022-02-18 09:21 | PC.NURSE ---
Orders to dc home. Pt resting at this time. Wants to try to nap before going. Pt encouraged to call out when ready and staff can remove IV and help pt prep to go home. Denies any needs at this time. Call light within reach.
--- NOTE | 2022-02-18 10:05 | PC.NURSE ---
Pt called out stating she was ready to go home.
--- NOTE | 2022-02-19 12:26 | PC.NURSE ---
02/18/22 0730 Met with pt and FOB; both shared sadness an questions about why and it's not fair . talked about going home today, and talking with her children. encouraged mother to take the time she needs to recover physically, and emotionally. Offered Share support, encouraged the support group; mother signed the Share consent for f/u once she is at home; plan to call her tomorrow.
--- NOTE | 2022-02-24 14:25 | PC.NURSE ---
02/24/22 [employer] office notified of this mother's delivery, SAB on 02/17/22.
== END 2022-02-18 10:20 | disposition home or self-care (01) ==
LOC: ANHED 13:18 → ANHOBPP 13:51
PROVIDERS: Physician Assistant; Admitting Provider Obstetrics & Gynecology; Emergency Provider Emergency Medicine; Visit Provider Obstetrics & Gynecology
DX: O03.9 Complete or unspecified spontaneous abortion without complication (principal); D62 Acute posthemorrhagic anemia; Z3A.14 14 weeks gestation of pregnancy; Z87.891 Personal history of nicotine dependence; F12.90 Cannabis use, unspecified, uncomplicated
CPT/HCPCS: 36415; 36430; 76801; 80053; 84702; 85014; 85018; 85025; 86850; 86900; 86901; 86920; 88305; 96360; 96361; 96374; 96375; 99285; A9270; G0378; G0379; J0131; J1170; J2270; J2405; J3480; J7030; J7040; P9016

== ENCOUNTER 2022-02-23 19:09 | Inpatient (IN) | payer OTHER, SELFPAY ==
[2022-02-23] VITALS (11 sets, daily range): BP systolic 93–119; BP diastolic 57–98; PULSE 80–134; RESP 12–26; TEMP 36.8–37.3; O2SAT 99–100
--- NOTE | 2022-02-23 19:14 | ED.FEMALEGU ---
HPI - Female Genitourinary General Chief complaint: Vaginal Bleeding Stated complaint: vaginal bleeding Time Seen by Provider: 02/23/22 19:13 Source: patient and family Mode of arrival: ambulatory Limitations: no limitations History of Present Illness HPI Narrative: 26 years old white female came from home by private car complaining of severe vaginal bleeding 2 hours prior to arrival to the emergency room. Patient is 5, para 2, abortions 3. Last miscarriage was on the of this month. Patient was admitted to the hospital because of heavy bleeding, received 1 unit of blood at that time, got discharged on the . Patient was doing okay since, last night had massive vaginal bleeding with blood clots, stopped overnight, and also during daytime until 5 PM which is 2 hours ago started to have massive bleeding again with blood clots. She denies any fever, chills, nausea, vomiting, lightheadedness, dizziness. Related Data Home Medications Medication Instructions Recorded Confirmed hydroxyzine pamoate 25 mg capsule 25 mg PO Q6H PRN Anxiety 02/21/20 02/21/20 Allergies Allergy/AdvReac Type Severity Reaction Status Date / Time No Known Allergies Allergy Verified 02/23/22 19:20 Review of Systems Review of Systems: All systems reviewed & are unremarkable except as noted in HPI and below PMFSH Past Medical History Medical History Anxiety Arthritis Sponge kidney Surgical History Surgical History History of D&C Social History Social History Years smoked: 8 Smoking status: Former smoker Tobacco type: cigarettes Substance use: current Substance use type: marijuana Last use: 02/20/2020 Spiritual care concerns: No Exam Narrative: General appearance: Well-developed, well-nourished Skin: Pale Chest and respiratory: Airway patent, no respiratory distress, no accessory muscle use Heart: Tachycardia Abdomen: Soft, mild diffuse suprapubic tenderness, no organomegaly, quiet bowel sounds Vascular: Normal peripheral pulses, normal capillary refill. Neurologic: Alert and oriented ?3, : External Female Exam: normal external appearance Speculum Exam - Vagina: vaginal bleeding (Large blood clots, golf ball size, massive bleeding, keeps coming without s) Speculum Exam - Cervix: normal appearance of the cervix (I could not see the cervix because of the massive VaG bleed) Course Consultations Consultation #1: DR HEDRICK Date: 02/23/22 Time: 20:25 Critical Care Time Critical Care Time Critical Care Time: Yes Total Critical Care Time: 50 Discharge Plan Discharge Patient Disposition: Still a Patient Additional Instructions: Patient to go to the OR, discussed with Dr. HEDRICK Prescriptions: No Action hydroxyzine pamoate 25 mg Capsule 25 mg PO Q6H PRN (Reason: Anxiety) hydrocodone-acetaminophen [[place]] 5-325 mg tablet 1 tablet PO Q4H PRN (Reason: pain) Qty: 30 0RF ferrous sulfate 325 mg (65 mg iron) tablet 325 mg PO DAILY Qty: 30 0RF Follow-up/Referrals: PHYSICIAN,RETAIL OPERATIONS MANAGER [Primary Care Provider] -
[2022-02-23 19:33] LABS: Basophils Absolute Auto 0.1 K/mm3 (0.0-0.1); Basophils Percent Auto 0.4 % (0.2-1.2); Eosinophils Absolute Auto 0.7 K/mm3 (0-0.3); Eosinophils Percent Auto 3.4 % (0-4.4); Hematocrit 23.6 % (37.0-47.0); Hemoglobin 7.6 g/dL (12.0-15.0); Immature Granulocyte Absolute 0.73 K/mm3 (0.00-0.031); Immature Granulocyte Percent A 3.7 % (0-0.5); Immature Platelet Fraction Pct 9.4 % (0.9-11.2); Lymphocytes Absolute Auto 4.04 K/mm3 (0.9-3.2); Lymphocytes Percent Auto 20.5 % (18.3-44.2); Mean Corpuscular HGB Conc 32.2 g/dl (32-36); Mean Corpuscular Hemoglobin 29.7 pg (26-34); Mean Corpuscular Volume 92.2 fl (80-100); Mean Platelet Volume 11.1 fl (7.4-10.4); Monocytes Absolute Auto 1.9 K/mm3 (0.1-0.6); Monocytes Percent Auto 9.6 % (2.6-8.5); Neutrophils Absolute Auto 12.3 K/mm3 (1.3-6.7); Neutrophils Percent Auto 62.4 % (45.5-73.1); Nucleated Red Blood Cells Absolute Auto 0.1 K/mm3 (0.0-0.012); Nucleated Red Blood Cells Perc 0.3 % (0.0-0.2); Platelet Count Result 289 k/mm3 (150-375); Red Blood Count 2.56 M/mm3 (4.2-5.4); Red Cell Distribution Width 14.3 % (11.5-14.5); White Blood Count 19.7 K/mm3 (4.5-10.0)
[2022-02-23] MEDS: SODIUM CHLORIDE 0.9% IV 2,000 ML 999 ML IV CONT (19:48)
[2022-02-23] MEDS: TRANEXAMIC ACID 1,000MG/ISO100 1,000 MG/100 ML BAG 200 MG IVPB (20:16)
--- NOTE | 2022-02-23 20:37 | WPDANESEPP ---
Anes - Eval Pre Procedure Procedure: Operation Date: 02/23/22 21:00 Proposed Procedures p D&C Suction and Bao Day MD Date/Time: 02/23/22 20:37 Pre Op Diagnosis: vaginal bleeding Patient Data Age: 26 Gender: F Height: 1.57 m Weight: 48 kg Last Vital Signs Temp 37.3 C 02/23/22 19:15 Pulse 134 H 02/23/22 19:15 Resp 26 H 02/23/22 19:15 BP 108/68 02/23/22 19:15 Pulse Ox 100 02/23/22 19:15 O2 Del Method Room Air 02/23/22 19:15 Allergies Allergy/AdvReac Type Severity Reaction Status Date / Time No Known Allergies Allergy Verified 02/23/22 19:20 Home Medications Medication Instructions Recorded Confirmed Type hydroxyzine pamoate 25 mg capsule 25 mg PO Q6H PRN Anxiety 02/21/20 02/21/20 History hydrocodone 5 mg-acetaminophen 325 1 tablet PO Q4H PRN pain #30 tabs 02/24/20 Rx mg tablet ([place]) ferrous sulfate 325 mg (65 mg 325 mg PO DAILY #30 tabs 02/18/22 Rx iron) tablet Laboratory Tests 02/23/22 02/23/22 02/23/22 19:25 19:25 19:50 WBC 19.7 K/mm3 H K/mm3 (4.5-10.0) RBC 2.56 M/mm3 L M/mm3 (4.2-5.4) Hgb 7.6 g/dL L g/dL (12.0-15.0) Hct 23.6 % L % (37.0-47.0) MCV 92.2 fl fl (80-100) MCH 29.7 pg pg (26-34) MCHC 32.2 g/dl g/dl (32-36) RDW 14.3 % % (11.5-14.5) Plt Count 289 k/mm3 k/mm3 (150-375) MPV 11.1 fl H fl (7.4-10.4) Immature Gran % (Auto) 3.7 % H % (0-0.5) Neut % (Auto) 62.4 % % (45.5-73.1) Lymph % (Auto) 20.5 % % (18.3-44.2) [place] % (Auto) 9.6 % H % (2.6-8.5) Eos % (Auto) 3.4 % % (0-4.4) Baso % (Auto) 0.4 % % (0.2-1.2) Lymph # (Auto) 4.04 K/mm3 H K/mm3 (0.9-3.2) [place] # (Auto) 1.9 K/mm3 H K/mm3 (0.1-0.6) Eos # (Auto) 0.7 K/mm3 H K/mm3 (0-0.3) Baso # (Auto) 0.1 K/mm3 K/mm3 (0.0-0.1) Abs Immat Gran (auto) 0.73 K/mm3 H K/mm3 (0.00-0.031) Absolute Neuts (auto) 12.3 K/mm3 H K/mm3 (1.3-6.7) Absolute Nucleated RBC 0.1 K/mm3 H K/mm3 (0.0-0.012) Nucleated RBC % 0.3 % H % (0.0-0.2) % Immature Plt Fraction 9.4 % % (0.9-11.2) Sodium Pending Potassium Pending Chloride Pending Carbon Dioxide Pending Anion Gap Pending BUN Pending Creatinine Pending Estim Creat Clear Calc Pending Estimated GFR Pending Glucose Pending Calcium Pending Blood Type Pending Antibody Screen Pending Crossmatch See Detail Patient hx anesthesia problems: none Family hx anesthesia problems: none Results Review: All pre-operative results and documents have been reviewed as part of the pre-operative evaluation. [facility] Past Medical History Medical History Anxiety Arthritis Sponge kidney Surgical History Surgical History History of D&C Social History Social History Years smoked: 8 Smoking status: Former smoker Tobacco type: cigarettes Substance use: current Substance use type: marijuana Last use: 02/20/2020 Spiritual care concerns: No Exam Day of Procedure 02/23/22 20:37
--- NOTE | 2022-02-23 20:48 | PM.IMHP ---
H&P: HPI History of Present Illness Date/Time: 02/23/22 20:48 Chief Complaint: vaginal bleeding Narrative: 26 yo who presents to the ED with acute heavy vaginal bleeding. Pt states she suffered a spontaneous on 02/17/22. Pt states she had some bleeding at that time that required blood transfusion. She states that bleeding had stopped. Last night she started having bleeding and when she went to stand up she states it was like she was peeing blood. Pt states the bleeding would not stop. She states she set an alarm as she was afraid she would bleed too much throughout the night. Pt states she had another episode of heavy bleeding today. She states she was also passing several large clots. Review of Systems Review of Systems: All systems reviewed & are unremarkable except as noted in HPI and below PMFSH Past Medical History Medical History Anxiety Arthritis Sponge kidney Surgical History Surgical History History of D&C Social History Social History Years smoked: 8 Smoking status: Former smoker Tobacco type: cigarettes Substance use: current Substance use type: marijuana Last use: 02/20/2020 Spiritual care concerns: No Meds Home Medications and Allergies Home Medications Medication Instructions Recorded Confirmed Type hydroxyzine pamoate 25 mg capsule 25 mg PO Q6H PRN Anxiety 02/21/20 02/21/20 History hydrocodone 5 mg-acetaminophen 325 1 tablet PO Q4H PRN pain #30 tabs 02/24/20 Rx mg tablet ([place]) ferrous sulfate 325 mg (65 mg 325 mg PO DAILY #30 tabs 02/18/22 Rx iron) tablet Allergies Allergy/AdvReac Type Severity Reaction Status Date / Time No Known Allergies Allergy Verified 02/23/22 19:20 Vital Signs Vital Signs - 24 hr 02/23/22 19:15 Temperature 37.3 C Pulse Rate 134 H Respiratory Rate 26 H Blood Pressure 108/68 Pulse Oximetry 100 Oxygen Delivery Room Air Exam Const: General: lethargic and tired appearing Resp: Effort & Inspection: normal respiratory effort and able to speak in complete sentences Cardio: Rate: regular rate Rhythm: regular rhythm GI: GI Palp: No abdominal tenderness and Yes Soft to palpation Skin: General skin exam: pallor H&P: Results Labs Labs: Short CBC 02/23/22 Range/Units 19:25 WBC 19.7 H (4.5-10.0) K/mm3 Hgb 7.6 L (12.0-15.0) g/dL Hct 23.6 L (37.0-47.0) % Plt Count 289 (150-375) k/mm3 Assessment and Plan Assessment and plan (1) Acute blood loss anemia: Code(s): D62 - Acute posthemorrhagic anemia Status: Acute (2) Vaginal bleeding: Code(s): N93.9 - Abnormal uterine and vaginal bleeding, unspecified Status: Acute Assessment and Plan: pt presents to ED with acute heavy vaginal bleeding s/p SAB on 02/17/22 pt had heavy bleeding at that time requiring transfusion pt states bleeding returned yesterday pt noted to have brisk vaginal bleeding on exam. hgb 7, pt tachycardic plan for emergent suction D&C pt given 1000 mg TXA ER provider ordered 2 u PRBC
--- NOTE | 2022-02-23 20:48 | PC.NURSE ---
Pt to OR c anesthesiology and MD Shay.
[2022-02-23 21:00] LABS: Alanine Aminotransferase 32 U/L (6-35); Albumin Level 2.3 g/dL (3.5-5.1); Alkaline Phosphatase 67 U/L (38-126); Anion Gap 3 mmol/L (8-16); Aspartate Amino Transferase 26 U/L (14-36); Bilirubin,Total < 0.1 mg/dL (0.2-1.3); Blood Urea Nitrogen 4 mg/dL (7-17); Calcium 6.6 mg/dL (8.4-10.2); Carbon Dioxide 27 mmol/L (22-30); Chloride 108 mmol/L (98-107); Estimated CRCL calculation 129 ml/min; Estimated Glomerular Filt Rate > 60; Glucose 92 mg/dL (65-110); Sodium 138 mmol/L (137-145)
--- NOTE | 2022-02-23 21:08 | P.PNAN_ITS ---
Anes - Eval Final PreProcedure Day of Procedure 02/23/22 21:08 Patient weight: normal Heart: tachycardia Lungs: clear to auscultation Airway: Mallampati scale class II Neurological: alert and oriented ASA classification: III Emergent: yes Anesthetic plan: proceed Anesthesia type and monitoring: general ETT and standard monitoring Results Review: All pre-operative results and documents have been reviewed as part of the pre- operative evaluation. Informed Consent: The patient's anesthetic plan and its attendant risks and benefits were discussed with the patient/family/POA. Questions were solicited and answers provided to the satisfaction of the patient/family/POA.
[2022-02-23] MEDS: SODIUM CHLORIDE 0.9% IV 250 ML 30 ML IV CONT (21:32)
[2022-02-23] MEDS: TRANEXAMIC ACID 1,000 MG/10 ML AMPUL 1000 MG IV PUSH (21:37)
[2022-02-23] MEDS: LACTATED RINGERS 1,000 ML 30 ML IV CONT ×2 (21:50)
--- NOTE | 2022-02-23 22:07 | W.PM.PROC2 ---
Procedure Note - Detailed Date of Procedure 02/23/22 Pre-op Diagnosis vaginal bleeding Post-op Diagnosis Same Procedure Performed Suction Dilation & curettage Surgeon Aleksey Day MD Indications spontaneous missed on pelvic US acute vaginal bleeding Findings intrauterine products of conception Description of Procedure The risks, benefits and alternatives of the procedure were reviewed with the patient and informed consent was obtained. The patient was taken to the OR and anesthesia was noted to be adequate. Bedside US was performed with showed a large amount of uterine contents retained in the lower uterine segment. The patient was placed in the dorsolithotomy position. Pelvic exam was performed with findings noted above. The patient was prepped and draped in the usual sterile fashion. Sterile speculum was placed in the vagina and the cervix. Upon placement of the speculum, brisk bright red blood was noted from the cervix. The cervix was dilated to approximately 3 cm and dark products of conception were at the os. The cervix was grasped with a tenaculum. The 8 mm suction curette was gently advanced to the fundus under direct US guidance, suction was activated, and the tip was rotated while being withdrawn to clear the uterus of products. This suction process was repeated 3 additional times due to the quantity of material in the uterus. The sharp curette was introduced and advanced to the fundus to remove any remaining products. After sharp curette, the uterus was still noted to be briskly bleeding. Suction and Sharp curette were repeated several times under US guidance. After bleeding was unable to be stopped with curettage, decision was made to attempt a Bakri balloon. Given the uterus was only 14 w gestational size, the Bakri balloon would not fit. Decision was then made to pack the uterus with gauze. The uterus was packed with saline soaked packing using a ring forceps under US guidance. The uterus was observe and good hemostasis was finally noted. The tenaculum was removed. Instrument, sponge, and sharp counts were correct. Patient tolerated the procedure well and was taken to the recovery room in stable condition. Estimated Blood Loss 1,000 Urine Output 400 Packing Yes (uterine packing) Pathology Yes (uterine contents, products of conception ) Condition Stable Disposition Floor
[2022-02-24] VITALS (8 sets, daily range): BP systolic 86–94; BP diastolic 47–60; PULSE 73–96; RESP 16–18; TEMP 36.4–36.9; O2SAT 98–100
[2022-02-24 04:41] LABS: Basophils Absolute Auto 0.1 K/mm3 (0.0-0.1); Basophils Percent Auto 0.3 % (0.2-1.2); Eosinophils Absolute Auto 0.1 K/mm3 (0-0.3); Eosinophils Percent Auto 0.2 % (0-4.4); Hemoglobin 7.9 g/dL (12.0-15.0); Immature Granulocyte Absolute 0.82 K/mm3 (0.00-0.031); Immature Granulocyte Percent A 3.7 % (0-0.5); Lymphocytes Absolute Auto 2.22 K/mm3 (0.9-3.2); Mean Corpuscular HGB Conc 34.3 g/dl (32-36); Mean Corpuscular Hemoglobin 30.4 pg (26-34); Mean Corpuscular Volume 88.5 fl (80-100); Mean Platelet Volume 9.9 fl (7.4-10.4); Monocytes Absolute Auto 0.7 K/mm3 (0.1-0.6); Monocytes Percent Auto 3.1 % (2.6-8.5); Neutrophils Absolute Auto 18.5 K/mm3 (1.3-6.7); Neutrophils Percent Auto 82.7 % (45.5-73.1); Nucleated Red Blood Cells Perc 0.1 % (0.0-0.2); Platelet Count Result 274 k/mm3 (150-375); Red Cell Distribution Width 14.4 % (11.5-14.5); White Blood Count 22.3 K/mm3 (4.5-10.0)
--- NOTE | 2022-02-24 07:36 | WPDANESPN ---
Anes - Prog Note Post-Op Date/Time: 02/24/22 07:36 Vital Signs: Last Vital Signs Temp 36.4 C 02/24/22 04:15 Pulse 73 02/24/22 04:15 Resp 18 02/24/22 04:15 BP 92/56 L 02/24/22 04:15 Pulse Ox 100 02/24/22 04:15 O2 Del Method Room Air 02/24/22 04:15 O2 Flow Rate 8 02/23/22 22:20 Pain Score (VAS): 0 I/O: Intake & Output 02/23/22 02/23/22 02/24/22 15:59 23:59 07:59 Intake Total 1100 Output Total 1150 400 Balance -50 -400 Laboratory Tests 02/24/22 04:18 02/23/22 20:46 02/23/22 02/23/22 02/23/22 19:25 19:25 19:50 WBC 19.7 H RBC 2.56 L Hgb 7.6 L Hct 23.6 L MCV 92.2 MCH 29.7 MCHC 32.2 RDW 14.3 Plt Count 289 MPV 11.1 H Immature Gran % (Auto) 3.7 H Neut % (Auto) 62.4 Lymph % (Auto) 20.5 [place] % (Auto) 9.6 H Eos % (Auto) 3.4 Baso % (Auto) 0.4 Lymph # (Auto) 4.04 H [place] # (Auto) 1.9 H Eos # (Auto) 0.7 H Baso # (Auto) 0.1 Abs Immat Gran (auto) 0.73 H Absolute Neuts (auto) 12.3 H Absolute Nucleated RBC 0.1 H Nucleated RBC % 0.3 H % Immature Plt Fraction 9.4 Sodium Cancelled Potassium Cancelled Chloride Cancelled Carbon Dioxide Cancelled Anion Gap Cancelled BUN Cancelled Creatinine Cancelled Estim Creat Clear Calc Cancelled Estimated GFR Cancelled Glucose Cancelled Calcium Cancelled Total Bilirubin AST ALT Alkaline Phosphatase Total Protein Albumin Blood Type B Positive Antibody Screen Negative Crossmatch See Detail 02/23/22 02/24/22 20:46 04:18 WBC 22.3 H RBC 2.60 L Hgb 7.9 L Hct 23.0 L MCV 88.5 MCH 30.4 MCHC 34.3 RDW 14.4 Plt Count 274 MPV 9.9 Immature Gran % (Auto) 3.7 H Neut % (Auto) 82.7 H Lymph % (Auto) 10.0 L [place] % (Auto) 3.1 Eos % (Auto) 0.2 Baso % (Auto) 0.3 Lymph # (Auto) 2.22 [place] # (Auto) 0.7 H Eos # (Auto) 0.1 Baso # (Auto) 0.1 Abs Immat Gran (auto) 0.82 H Absolute Neuts (auto) 18.5 H Absolute Nucleated RBC 0.0 Nucleated RBC % 0.1 % Immature Plt Fraction Sodium 138 Potassium 3.0 L Chloride 108 H Carbon Dioxide 27 Anion Gap 3 L BUN 4 L Creatinine 0.40 L Estim Creat Clear Calc 129 Estimated GFR > 60 Glucose 92 Calcium 6.6 L Total Bilirubin < 0.1 L AST 26 ALT 32 Alkaline Phosphatase 67 Total Protein 5.0 L Albumin 2.3 L Blood Type Antibody Screen Crossmatch Patient Feedback: Patient satisfied with anesthetic care.
--- NOTE | 2022-02-24 07:54 | PM.GYNPNOP ---
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 Assessment and plan (1) Acute blood loss anemia: Code(s): D62 - Acute posthemorrhagic anemia Status: Acute Assessment and Plan: Hypotensive, normal pulse pt reports feeling fatigued and weak H/H 7.04/25, s/p 2 u pRBC transfusion (02/23/22) continue IVF at 125 ml/hr plan for repeat CBC in AM (2) Spontaneous in first trimester: Code(s): O03.9 - Complete or unspecified spontaneous without complication Status: Acute Assessment and Plan: Pt dx with SAB on 02/17/22 presents with acute vaginal bleeding s/p suction D&C large volume blood loss intraoperative with continued bleeding pt required uterine packing to stabilize uterine packing removed this AM hemodynamically stable at this point will continue to monitor bleeding WBC 22 this AM, increased from 19. May be stress response but pt has risks for infection with SAB and uterine packing will start Clindamycin/Gentamicin this AM will repeat CBC in AM Postoperative Procedures: Procedures Operation Date: 02/23/22 21:00 Actual Procedure Side Surgeon p D&C Suction and Sharp Aleksey Day MD Time Spent With Patient Time: Total time spent is greater than 50% in coordination of care (as documented) at patient's floor/unit and/or counseling patient: Time with patient: 15 - 25 minutes MUFFLER MECHANIC- PN:Selena Post-Op Subjective Date/time seen: 02/24/22 07:54 Review of Systems Review of Systems: Pt resting comfortably this AM. Pt does report feeling very weak and sick. She has had no continued vaginal bleeding over night. She has not attempted ambulation. She denies any pain. Exam Const: General: lethargic and tired appearing Nutritional Appearance: thin Resp: Effort & Inspection: normal respiratory effort and able to speak in complete sentences Cardio: Rate: regular rate Rhythm: regular rhythm GI: GI Palp: No abdominal tenderness and Yes Soft to palpation : Other: Uterine packing removed today, no acute bleeding Skin: General skin exam: pallor MUFFLER MECHANIC - PN: Obj Data Vital Signs Vital Signs: Vital Signs - 24 hr 02/23/22 19:15 02/23/22 21:50 02/23/22 22:05 Temperature 37.3 C 37.2 C Pulse Rate 134 H 94 95 Respiratory Rate 26 H 22 H 18 Blood Pressure 108/68 119/62 116/98 H Pulse Oximetry 100 100 100 Oxygen Delivery Room Air Simple Face Mask Simple Face Mask Oxygen Flow Rate 8 8 02/23/22 22:20 02/23/22 22:35 02/23/22 22:50 Temperature Pulse Rate 85 88 90 Respiratory Rate 12 14 14 Blood Pressure 100/75 93/69 L 101/69 Pulse Oximetry 100 100 100 Oxygen Delivery Simple Face Mask Room Air Room Air Oxygen Flow Rate 8 02/23/22 22:58 02/23/22 21:58 02/23/22 22:13 Temperature 37.2 C 37.2 C Pulse Rate 98 86 88 Respiratory Rate 16 16 12 Blood Pressure 104/75 106/66 105/64 Pulse Oximetry 100 100 100 Oxygen Delivery Room Air Oxygen Flow Rate 02/23/22 22:28 02/23/22 23:30 02/23/22 23:30 Temperature 36.9 C 36.8 C Pulse Rate 81 80 80 Respiratory Rate 12 18 18 Blood Pressure 111/64 95/57 L Pulse Oximetry 100 99 99 Oxygen Delivery Room Air Oxygen Flow Rate 02/24/22 04:15 02/24/22 04:15 Temperature 36.4 C Pulse Rate 73 73 Respiratory Rate 18 18 Blood Pressure 92/56 L Pulse Oximetry 100 100 Oxygen Delivery Room Air Oxygen Flow Rate Intake/Output Intake/Output: Intake & Output 02/21/22 02/22/22 02/23/22 02/24/22 23:59 23:59 23:59 23:59 Intake Total 1100 Output Total 1150 400 Balance -50 -400 Meds/Results Medications: Active Medications Generic Name Dose Route Start Last Admin Trade Name Freq PRN Reason Stop Dose Admin Hydrocodone Bitart/Acetaminophen 1 tab 02/23/22 21:59 Hydrocodone/Acetaminophen (*Crx) 5-325 Mg Tablet PO Q3H PRN Pain Rated 5 or Less Lactated Ringer's 1,000 mls @ 125 mls/hr 02/23/22 22:00 Lr - Lactated Ringers Iv IV CONT .Q8H [facility] Morphine Sulfate 4 mg 02/23/22 21:59 Morphine
[2022-02-24] MEDS: LACTATED RINGERS 1,000 ML 125 ML IV CONT ×2 (07:58→19:30)
[2022-02-24] MEDS: MORPHINE SULFATE (*CRX) 4 MG/ML INJ IV PUSH (07:58)
[2022-02-24] MEDS: CLINDAMYCIN 900 MG/D5W 50 ML 900 MG/50 ML PIGGYBACK 50 MG IVPB ×3 (08:22→23:20)
[2022-02-24] MEDS: GENTAMICIN SULFATE INJ 240 MG in DEXTROSE 5% 100 ML 100 MG IVPB (09:44)
[2022-02-24] MEDS: HYDROcodone/acetaminophen (*CRX) 5-325 MG TABLET 1 TAB PO (17:26)
[2022-02-25] VITALS (9 sets, daily range): BP systolic 82–102; BP diastolic 44–62; PULSE 60–80; RESP 12–18; TEMP 36.3–36.7; O2SAT 98–100
[2022-02-25] MEDS: HYDROcodone/acetaminophen (*CRX) 5-325 MG TABLET 1 TAB PO (04:07)
[2022-02-25] MEDS: LACTATED RINGERS 1,000 ML 125 ML IV CONT (04:08)
[2022-02-25 04:33] LABS: Basophils Absolute Auto 0.1 K/mm3 (0.0-0.1); Basophils Percent Auto 0.5 % (0.2-1.2); Eosinophils Absolute Auto 0.5 K/mm3 (0-0.3); Eosinophils Percent Auto 3.4 % (0-4.4); Immature Granulocyte Absolute 0.64 K/mm3 (0.00-0.031); Immature Granulocyte Percent A 4.4 % (0-0.5); Lymphocytes Absolute Auto 4.27 K/mm3 (0.9-3.2); Lymphocytes Percent Auto 29.4 % (18.3-44.2); Mean Corpuscular HGB Conc 32.7 g/dl (32-36); Mean Corpuscular Hemoglobin 30.5 pg (26-34); Mean Corpuscular Volume 93.4 fl (80-100); Mean Platelet Volume 9.7 fl (7.4-10.4); Monocytes Absolute Auto 0.9 K/mm3 (0.1-0.6); Monocytes Percent Auto 6.4 % (2.6-8.5); Neutrophils Absolute Auto 8.1 K/mm3 (1.3-6.7); Neutrophils Percent Auto 55.9 % (45.5-73.1); Nucleated Red Blood Cells Perc 0.3 % (0.0-0.2); Platelet Count Result 271 k/mm3 (150-375); Red Blood Count 2.13 M/mm3 (4.2-5.4); Red Cell Distribution Width 15.2 % (11.5-14.5); White Blood Count 14.5 K/mm3 (4.5-10.0)
[2022-02-25 04:38] LABS: Hematocrit 19.9 % (37.0-47.0); Hemoglobin 6.5 g/dL (12.0-15.0)
[2022-02-25] MEDS: CLINDAMYCIN 900 MG/D5W 50 ML 900 MG/50 ML PIGGYBACK 50 MG IVPB (08:37)
--- NOTE | 2022-02-25 09:14 | P.DS_ITS ---
DS: Admitting Diagnosis Discharge Date 02/25/22 Admitting Diagnosis acute vaginal bleeding early loss acute blood loss anemia DS: Summary Hospital Course Hospital Course: 26 yo who presented to the ED with acute heavy vaginal bleeding. Pt was found to be anemic secondary to bleeding. Pt was diagnosed with spontaneous early loss one week earlier and had heavy bleeding at that time that required transfusion. Pt underwent suction D&C for management of acute bleeding. Pt continued to have bleeding intraop and required uterine packing overnight. Pt received 3 units pRBC. She was given IV antibiotics. Uterine packing removed POD#1. Pt remained stable post op. She did not have any further vaginal bleeding. Time Spent with Patient Time attestation: Total time spent providing and/or coordinating discharge services: Exam Const: General: cooperative, comfortable and no acute distress Resp: Effort & Inspection: normal respiratory effort and able to speak in complete sentences Cardio: Rate: regular rate Rhythm: regular rhythm GI: GI Palp: No abdominal tenderness and Yes Soft to palpation Skin: General skin exam: pallor DS: Data Data Completed and Pending Pending studies at discharge: Pending at discharge 02/23/22 21:43 Surgical [PTH] Routine Labs on day of discharge: Labs from last 24 hours 02/25/22 02/23/22 04:01 19:50 WBC 14.5 H RBC 2.13 L Hgb 6.5 L* Hct 19.9 L* MCV 93.4 D MCH 30.5 MCHC 32.7 RDW 15.2 H Plt Count 271 MPV 9.7 Immature Gran % (Auto) 4.4 H Neut % (Auto) 55.9 Lymph % (Auto) 29.4 [place] % (Auto) 6.4 Eos % (Auto) 3.4 Baso % (Auto) 0.5 Lymph # (Auto) 4.27 H [place] # (Auto) 0.9 H Eos # (Auto) 0.5 H Baso # (Auto) 0.1 Abs Immat Gran (auto) 0.64 H Absolute Neuts (auto) 8.1 H Absolute Nucleated RBC 0.0 Nucleated RBC % 0.3 H Blood Type B Positive Antibody Screen Negative Crossmatch See Detail Discharge Plan Discharge Consulting providers: Juancarlos Gunderson Discharging Clinician: Aleksey Day Patient Disposition: Home, Self-Care Activity: as tolerated and pelvic rest Diet: regular Discharge Instructions: Patient to go to the OR, discussed with Dr. DAY Patient Instructions: Antibiotic Form Stand Alone Forms: General Discharge Information Follow-up/Referrals: Jordy Morales MD [Physician] - 1 Week PHYSICIAN,LABOR RELATIONS CONSULTANT [Primary Care Provider] - Discharge Medications: Continued hydroxyzine pamoate 25 mg Capsule 25 mg PO Q6H PRN (Reason: Anxiety) ferrous sulfate 325 mg (65 mg iron) tablet 325 mg PO DAILY Qty: 30 0RF Discontinued hydrocodone-acetaminophen [[place]] 5-325 mg tablet 1 tablet PO Q4H PRN (Reason: pain) Qty: 30 0RF Date of admission: 02/23/22 20:47 Primary Care Provider: PHYSICIAN,LABOR RELATIONS CONSULTANT Admitting Provider: Aleksey Day Attending physician on admission: Aleksey Day Condition: Stable
== END 2022-02-25 11:30 | disposition home or self-care (01) | DRG 544 ==
LOC: ANHED 23:00 → ANHSURGERY 23:00 → ANHOB2 23:01
PROVIDERS: Admitting Provider Student in an Organized Health Care Education/Training Program; Emergency Provider Emergency Medicine; Visit Provider Student in an Organized Health Care Education/Training Program
PROC: 10D17ZZ Extraction of Products of Conception, Retained, Via Natural or Artificial Opening (ICD-10-PCS; principal; 2022-02-23 21:00)
DX: O03.1 Delayed or excessive hemorrhage following incomplete spontaneous abortion (principal); D62 Acute posthemorrhagic anemia; M19.90 Unspecified osteoarthritis, unspecified site
CPT/HCPCS: 36415; 36430; 80053; 85025; 85055; 86850; 86900; 86901; 86920; 88305; 96365; 99285; A9270; J0330; J1100; J1580; J2270; J2405; J2704; J3010; J7030; J7040; J7050; J7120; P9016

== ENCOUNTER 2022-03-14 01:32 | Day surgery (SDC) | payer OTHER, SELFPAY ==
--- NOTE | 2022-03-13 05:19 | P.HP_ITS ---
H&P: HPI History of Present Illness Date/Time: 03/13/22 05:19 Chief Complaint: bleeding Narrative: a 26-year-old female who is admitted for hysteroscopy dilatation curettage secondary to continued bleeding. She received a transfusion following a suction D&C. She has continued to bleed despite pathology showing products of conception. She underwent ultrasound in the office and a vascular areas seen at the fundus of the uterus. She has been on oral contraceptives and this has slowed her bleeding but it continues to be relatively heavy. Her last hemoglobin was 12 in the office. [facility] Past Medical History Medical History Anxiety Arthritis Sponge kidney Surgical History Surgical History History of D&C Social History Social History Years smoked: 8 Smoking status: Former smoker Tobacco type: cigarettes Substance use: current Substance use type: marijuana Last use: 02/20/2020 Spiritual care concerns: No Meds Home Medications and Allergies Home Medications Medication Instructions Recorded Confirmed Type hydroxyzine pamoate 25 mg capsule 25 mg PO Q6H PRN Anxiety 02/21/20 02/21/20 History ferrous sulfate 325 mg (65 mg 325 mg PO DAILY #30 tabs 02/18/22 Rx iron) tablet Allergies Allergy/AdvReac Type Severity Reaction Status Date / Time No Known Allergies Allergy Verified 02/23/22 19:20 Assessment and Plan Assessment and plan (1) Vaginal bleeding: Code(s): N93.9 - Abnormal uterine and vaginal bleeding, unspecified Status: Acute Plan Hysteroscopy/dilatation curettage
--- NOTE | 2022-03-14 06:34 | WPDHPUPDATE1 ---
History and Physical Update Update Date/Time: 03/14/22 06:34 History and Physical has been reviewed, including an updated exam of the patient. There are NO changes in the patient's condition. Risks, benefits, and alternatives have been discussed and questions answered. Patient agrees to proceed with procedure.
[2022-03-14 07:43] VITALS: BMI 19.8
--- NOTE | 2022-03-14 07:58 | PC.NURSE ---
Report to the Outpatient Waiting Room, entrance under the green pavilion located off [facility], at time ___1100____ on date __03/14/22 . OR Time: ___1300 (1 PM) . - You and your visitor will be asked to self-screen and do not enter if you have any COVID symptoms. - Only one visitor and NO children visitors are allowed at this time. - The patient visitor is requested to leave or wait in car when not with patient due to restrictions. - A mask is required within the hospital. Patients may have clear liquids (water, carbonated beverages, clear teas, apple juice) until 3 hours prior to surgery (1000 AM) with a maximum of 20 ounces. - No food from midnight until time of surgery - Infants may have breast milk until 4 hours before surgery, infant formula 6 hours prior to surgery. - Children will be allowed to drink immediately following surgery. If applicable, please bring a bottle or sippy cup to assist with drinking. Juice, water, soda, and popsicles are readily available. For infants on formula, please bring formula the day of surgery. Pacifiers are allowed. Take the following medications with a SIP of water the morning of surgery: N/A Medications to discontinue per physician N/A Date to take last dose Please no make-up, nail mohawk, hairspray, perfume, deodorant, or body powder the day of surgery. No jewelry (including any body piercings) or valuables the day of surgery, leave them at home. Please take a shower or bath the night before, or the morning of, surgery with an antibacterial soap. Wear comfortable, loose fitting clothing. Children are encouraged to wear pajamas. - Jewelry must be removed prior to entering the operating room. Rings and piercings that are not removed may be cut off. - The hospital will not accept responsibility for valuables. - Please leave all valuables, including medications, at home the day of surgery. If you are going home after surgery, a licensed lumber stacker driver must drive you home. - NO public transportation without another adult. - We recommend that an adult stay with you for 24 hours following discharge. - We also recommend that you do not drive, make important decision, drink alcoholic beverages, or take any drugs that were not prescribed by your health care provider for at least 24 hours after your discharge time. For Pediatric surgeries, we recommend two adults accompany the child home (only one inside the building at this time). Follow any additional instructions given to you from your surgeon. If you or anyone in your household have experienced Covid symptoms in the past week, please notify your surgeon or the nurse liaison at the phone number below for possible testing. Telephone instructions given to ____PT and asked if any additional questions and then verbalized understanding. Patient advised to call surgeon office or pre surgery nurse liaison [phone] if any additional questions.
[2022-03-14 11:06] VITALS: BP 93/63; PULSE 88; RESP 16; TEMP 36.2; O2SAT 100
[2022-03-14] MEDS: ACETAMINOPHEN 500 MG TABLET 1000 MG PO (11:13)
[2022-03-14] MEDS: LACTATED RINGERS 1,000 ML 30 ML IV CONT (11:29)
--- NOTE | 2022-03-14 11:35 | WPDANESEPPF ---
Anes - Initial Pre Proc Eval Procedure: Operation Date: 03/14/22 13:00 Proposed Procedures p Hysteroscopy Dilation and Curettage - Guerrero Price MD Date/Time: 03/14/22 11:35 Surgeon: Guerrero Price MD Pre Op Diagnosis: excessive bleeding Patient Data Age: 26 Gender: F Height: 1.57 m Weight: 48.9 kg Last Vital Signs Temp 36.2 C L 03/14/22 11:06 Pulse 88 03/14/22 11:06 Resp 16 03/14/22 11:06 BP 93/63 L 03/14/22 11:06 Pulse Ox 100 03/14/22 11:06 O2 Del Method Room Air 03/14/22 11:06 Allergies Allergy/AdvReac Type Severity Reaction Status Date / Time No Known Allergies Allergy Verified 03/14/22 10:59 Home Medications Medication Instructions Recorded Confirmed Type [id number] 3-fat com #1 27 1 cap PO HS 03/14/22 03/14/22 History mg-1 mg-300 mg capsule levonorgestrel 0.1 1 tablet PO DAILY 03/14/22 03/14/22 History mg-eth.estradiol 0.02 mg(21)/iron 36.5 mg(7) tablet ([place]) Laboratory Tests 03/14/22 11:22 Hgb Pending Hct Pending Patient hx anesthesia problems: none Family hx anesthesia problems: none Results Review: All pre-operative results and documents have been reviewed as part of the pre-operative evaluation. [facility] Past Medical History Medical History Anxiety Arthritis Sponge kidney Surgical History Surgical History History of D&C Social History Social History Years smoked: 11 Smoking status: Current every day smoker Tobacco type: cigarettes Second hand tobacco smoke exposure: Yes Alcohol intake: current Alcohol use details: STATES RARELY 2-4 DRINKS/MONTH Substance use: current Substance use type: marijuana Other substance usage details: 2 HITS DAILY Last use: 03/13/22 Living arrangements: with family Additional living arrangements comments: LIVES WITH HER MOM AND 2 KIDS Spiritual care concerns: No Anes - Eval Final PreProcedure Day of Procedure 03/14/22 11:35 Patient weight: normal Heart: regular rate and rhythm Lungs: clear to auscultation Airway: Mallampati scale class II Neurological: alert and oriented Last oral intake: >/= 8 hours ASA classification: II Emergent: no Anesthetic plan: proceed Anesthesia type and monitoring: general GIVS and standard monitoring Results Review: All pre-operative results and documents have been reviewed as part of the pre-operative evaluation. Informed Consent: The patient's anesthetic plan and its attendant risks and benefits were discussed with the patient/family/POA. Questions were solicited and answers provided to the satisfaction of the patient/family/POA.
[2022-03-14 11:39] LABS: Hematocrit 37.2 % (37.0-47.0)
[2022-03-14] MEDS: ceFAZolin SODIUM 1 GM VIAL 2 GM IV PUSH (13:54)
--- NOTE | 2022-03-14 13:58 | W.PM.PROC2 ---
Procedure Note - Detailed Date of Procedure 03/14/22 Pre-op Diagnosis excessive bleeding Post-op Diagnosis Other (With suspected retained placenta) Procedure Performed Hysteroscopy/dilatation curettage Surgeon Guerrero Price MD Anesthesia MAC and Local Indications This is a 26-year-old female who had a first-trimester incomplete a be followed by a suction D&C. She continued to have bleeding underwent an ultrasound and some abnormality was seen at the fundus of the uterus. Findings Uterus sounded to 10cm. Tissue that look like retained placenta was present. Description of Procedure Patient was prepped draped in the normal sterile fashion placed in the dorsal lithotomy position. Under excellent IV sedation weighted speculum was placed in posterior fornix vagina. Anterior lip of the cervix grasped with single-tooth tenaculum and 2.5cc of% xylocaine anesthesia placed at 2, 4, 8, 10:00 a.m. of the cervix. Uterus sounded to 10cm. Serial dilatation with fragmented dilators performed followed by passage of the 5mm visualizing hysteroscope. Normal saline was used as visualizing medium. Thick tissue was seen at the fundus. This was suspected to be retained placenta and was adherent to the fundus. The uterus was then scraped over the entire 360? removing a moderate to large amount of thickened irregular tissue that appeared as placental type tissue. When no further tissue could removed and a good grating sound was heard, the procedure was terminated. Blood loss was estimated 50cc. All sponge, needle, instrument counts were correct. There were no immediate complications Estimated Blood Loss 50 Drains No Packing No Pathology Yes Complications No immediate complications Condition Stable Disposition PACU
[2022-03-14 14:03] VITALS: BP 100/67; PULSE 77; RESP 16; O2SAT 100
[2022-03-14] MEDS: fentaNYL CITRATE INJ (*CRX) 100 MCG/2 ML VIAL 25 MCG IV PUSH (14:23)
[2022-03-14 14:30] VITALS: BP 100/66; PULSE 70; RESP 16; O2SAT 100
[2022-03-14] MEDS: oxyCODONE HCL (*CRX) 5 MG TAB IR PO (14:41)
[2022-03-14 15:00] VITALS: BP 101/61; PULSE 64; RESP 16
== END 2022-03-14 15:07 | disposition home or self-care (01) ==
PROVIDERS: Visit Provider Obstetrics & Gynecology
PROC: 0U5B8ZZ Destruction of Endometrium, Via Natural or Artificial Opening Endoscopic (ICD-10-PCS; CPT 58563; principal; 2022-03-14 13:00)
DX: O72.0 Third-stage hemorrhage (principal); N93.9 Abnormal uterine and vaginal bleeding, unspecified; N71.1 Chronic inflammatory disease of uterus; Z87.891 Personal history of nicotine dependence; F12.90 Cannabis use, unspecified, uncomplicated; F41.9 Anxiety disorder, unspecified; M19.90 Unspecified osteoarthritis, unspecified site; Q61.5 Medullary cystic kidney
CPT/HCPCS: 59812; 36415; 85014; 85018; 88305; A9270; J0690; J1100; J1885; J2250; J2405; J2704; J3010; J7030; J7120

== ENCOUNTER 2023-07-03 04:52 | Inpatient (IN) | payer OTHER, SELFPAY ==
[2023-07-03] VITALS (58 sets, daily range): BP systolic 84–106; BP diastolic 46–82; PULSE 53–92; RESP 16; TEMP 36.2–37.2; O2SAT 97–100; BMI 23.2
[2023-07-03 05:41] LABS: Basophils Absolute Auto 0.1 K/mm3 (0.0-0.1); Basophils Percent Auto 0.5 % (0.2-1.2); Eosinophils Absolute Auto 0.2 K/mm3 (0-0.3); Eosinophils Percent Auto 1.9 % (0-4.4); Hematocrit 32.3 % (37.0-47.0); Hemoglobin 10.5 g/dL (12.0-15.0); Immature Granulocyte Absolute 0.08 K/mm3 (0.00-0.031); Immature Granulocyte Percent A 0.7 % (0-0.5); Lymphocytes Absolute Auto 3.01 K/mm3 (0.9-3.2); Lymphocytes Percent Auto 27.3 % (18.3-44.2); Mean Corpuscular HGB Conc 32.5 g/dl (32-36); Mean Corpuscular Hemoglobin 31.3 pg (26-34); Mean Corpuscular Volume 96.4 fl (80-100); Mean Platelet Volume 10.7 fl (7.4-10.4); Monocytes Absolute Auto 1.3 K/mm3 (0.1-0.6); Monocytes Percent Auto 11.4 % (2.6-8.5); Neutrophils Absolute Auto 6.4 K/mm3 (1.3-6.7); Neutrophils Percent Auto 58.2 % (45.5-73.1); Platelet Count Result 208 k/mm3 (150-375); Red Blood Count 3.35 M/mm3 (4.2-5.4); Red Cell Distribution Width 14.1 % (11.5-14.5)
[2023-07-03] MEDS: OXYTOCIN 30 UNITS/NS 500 ML 30 UNITS/500 ML BAG IV CONT (05:50)
[2023-07-03] MEDS: LACTATED RINGERS 1,000 ML 125 ML IV CONT ×2 (05:50→08:56)
--- NOTE | 2023-07-03 05:55 | LDADM ---
This patient, Talita Caldera, was admitted to Labor/Delivery/Recovery 108 on 07/03/23 at 04:52. Plans for labor, pain management and were discussed with patient. Patient/family oriented to hospital policies and general routines including ID bracelet, bed and alarms, visiting hours, pain management, procedures, bathroom and other care routines, personal items, smoking policy, room service/diet and guest tray routines, infant security routines, and visiting hours. Patient/Family are encouraged to report perceived risks to care and to ask questions if they do not understand what they are told or what they should do. See OBIX for further documentation.
--- NOTE | 2023-07-03 06:58 | PM.IMHP ---
H&P: HPI History of Present Illness Date/Time: 07/03/23 06:58 Chief Complaint: term Narrative: this is a 27-year-old 6 para 2 last menstrual period was 10/01/2022, EDC is 07/10/2023, presents 39 weeks gestation for induction labor. has been uncomplicated she is negative for B strep PMFSH Past Medical History Medical History Anxiety Arthritis Sponge kidney Surgical History Surgical History History of D&C Family History Family History Grandparent Diabetes mellitus Chronic obstructive pulmonary disease Grandparent Chronic obstructive pulmonary disease Asthma Social History Social History Years smoked: 11 Smoking status: Former smoker Tobacco type: cigarettes and e-cigarettes/vaping Second hand tobacco smoke exposure: Yes Alcohol intake: current Alcohol use details: STATES RARELY 2-4 DRINKS/MONTH Substance use: never Substance use type: marijuana Other substance usage details: 2 HITS DAILY Last use: 03/13/22 Lack of Transportation: No Lack of Food: Never True Current Housing: I Have Housing Concerned About Future Housing: No Difficulty Paying Gas/Electric Bills: No Difficulty Paying for Meds: No Currently Unemployed: No Education: High School Diploma/GED Difficulty w/ Childcare or Family Care: No Living arrangements: with family Additional living arrangements comments: LIVES WITH HER MOM AND 2 KIDS Spiritual care concerns: No Meds Home Medications and Allergies Home Medications Medication Instructions Recorded Confirmed Type [id number]-omega 3-fat com #1 27 1 cap PO HS 03/14/22 03/14/22 History mg-1 mg-300 mg capsule ondansetron 4 mg disintegrating 4 mg PO Q6H PRN Nausea And Vomiting 06/12/23 06/12/23 History tablet Allergies Allergy/AdvReac Type Severity Reaction Status Date / Time No Known Allergies Allergy Verified 06/12/23 12:35 Vital Signs Vital Signs - 24 hr 07/03/23 05:55 07/03/23 06:00 07/03/23 06:15 Pulse Rate 82 74 67 Blood Pressure 86/53 L 91/51 L 89/54 L Oxygen Delivery 07/03/23 06:30 07/03/23 06:45 07/03/23 05:55 Pulse Rate 70 64 Blood Pressure 90/56 L 92/62 L Oxygen Delivery Room Air Exam Const: General: cooperative, healthy appearing and comfortable Nutritional Appearance: underweight Orientation/consciousness: oriented to person, oriented to place and oriented to time HENMT: Head: normal to inspection Resp: Effort & Inspection: normal respiratory effort Cardio: Rate: regular rate Rhythm: regular rhythm Heart sounds: S1 normal heart sound present and S2 normal heart sound present GI: Inspection: normal to inspection ( gravid soft uterus) : External Female Exam: normal external appearance Speculum Exam - Vagina: normal appearance of the vagina Speculum Exam - Cervix: normal appearance of the cervix ( cervix 4/80/1. AROM clear. FHTs reassuring) H&P: Results Labs Labs: Short CBC 07/03/23 Range/Units 05:36 WBC 11.0 H (4.5-10.0) K/mm3 Hgb 10.5 L (12.0-15.0) g/dL Hct 32.3 L (37.0-47.0) % Plt Count 208 (150-375) k/mm3 Assessment and Plan Assessment and plan (1) Term : Code(s): Z34.90 - Encounter for supervision of normal , unspecified, unspecified trimester Status: Acute Plan medical induction of labor. Spontaneous vaginal delivery is expected. She is an epidural candidate
--- NOTE | 2023-07-03 08:30 | WPDANESEPP ---
Anes - Eval Pre Procedure Procedure: labor pain management Date/Time: 07/03/23 08:30 Surgeon: naomi price Preop Diagnosis: pain during labor Pre Op Diagnosis: IOL Patient Data Age: 27 Gender: F Height: 1.57 m Weight: 57.606 kg Last Vital Signs Temp 98.1 F 07/03/23 07:06 Pulse 61 07/03/23 08:15 BP 106/74 07/03/23 08:15 O2 Del Method Room Air 07/03/23 05:55 Allergies Allergy/AdvReac Type Severity Reaction Status Date / Time No Known Allergies Allergy Verified 06/12/23 12:35 Home Medications Medication Instructions Recorded Confirmed Type [id number]-omega 3-fat com #1 27 1 cap PO HS 03/14/22 03/14/22 History mg-1 mg-300 mg capsule ondansetron 4 mg disintegrating 4 mg PO Q6H PRN Nausea And Vomiting 06/12/23 06/12/23 History tablet Laboratory Tests 07/03/23 05:36 WBC 11.0 H K/mm3 (4.5-10.0) RBC 3.35 L M/mm3 (4.2-5.4) Hgb 10.5 L g/dL (12.0-15.0) Hct 32.3 L % (37.0-47.0) MCV 96.4 fl (80-100) MCH 31.3 pg (26-34) MCHC 32.5 g/dl (32-36) RDW 14.1 % (11.5-14.5) Plt Count 208 k/mm3 (150-375) MPV 10.7 H fl (7.4-10.4) Immature Gran % (Auto) 0.7 H % (0-0.5) Neut % (Auto) 58.2 % (45.5-73.1) Lymph % (Auto) 27.3 % (18.3-44.2) [place] % (Auto) 11.4 H % (2.6-8.5) Eos % (Auto) 1.9 % (0-4.4) Baso % (Auto) 0.5 % (0.2-1.2) Lymph # (Auto) 3.01 K/mm3 (0.9-3.2) [place] # (Auto) 1.3 H K/mm3 (0.1-0.6) Eos # (Auto) 0.2 K/mm3 (0-0.3) Baso # (Auto) 0.1 K/mm3 (0.0-0.1) Abs Immat Gran (auto) 0.08 H K/mm3 (0.00-0.031) Absolute Neuts (auto) 6.4 K/mm3 (1.3-6.7) Absolute Nucleated RBC 0.0 K/mm3 (0.0-0.012) Nucleated RBC % 0.0 % (0.0-0.2) RPR Pending Blood Type B Positive Antibody Screen Negative Patient hx anesthesia problems: none Family hx anesthesia problems: none Results Review: All pre-operative results and documents have been reviewed as part of the pre-operative evaluation. [facility] Past Medical History Medical History Anxiety Arthritis Sponge kidney Surgical History Surgical History History of D&C Family History Family History Grandparent Diabetes mellitus Chronic obstructive pulmonary disease Grandparent Chronic obstructive pulmonary disease Asthma Social History Social History Years smoked: 11 Smoking status: Former smoker Tobacco type: cigarettes and e-cigarettes/vaping Second hand tobacco smoke exposure: Yes Alcohol intake: current Alcohol use details: STATES RARELY 2-4 DRINKS/MONTH Substance use: never Substance use type: marijuana Other substance usage details: 2 HITS DAILY Last use: 03/13/22 Lack of Transportation: No Lack of Food: Never True Current Housing: I Have Housing Concerned About Future Housing: No Difficulty Paying Gas/Electric Bills: No Difficulty Paying for Meds: No Currently Unemployed: No Education: High School Diploma/GED Difficulty w/ Childcare or Family Care: No Living arrangements: with family Additional living arrangements comments: LIVES WITH HER MOM AND 2 KIDS Spiritual care concerns: No Exam Day of Procedure 07/03/23 08:30
[2023-07-03 09:49] LABS: Amphetamine Screen Urine Negative (Negative); Barbiturate Screen Urine Negative (Negative); Benzodiazepines Screen Urine Negative (Negative); Cannabinoid Screen Urine Positive (Negative); Cocaine Screen Urine Negative (Negative); Methadone Screen Urine Negative (Negative); Opiate Screen Urine Negative (Negative); Phencyclidine Screen Urine Negative (Negative)
--- NOTE | 2023-07-03 10:19 | P.PCNOB_ITS ---
OB - Vaginal Delivery Note Procedure Delivery date: 07/03/23 Events: Elective Induction of Labor Induction method: AROM Delivery monitor: External FHT Route of delivery: Episiotomy description: None Laceration Description: None Quantitative Blood Loss (ml): 60 Anesthesia type: Epidural Disposition: Floor Complications: No immediate complications [place] Baby Date of : 07/03/23 Time of : 10:07 Weeks of gestation at delivery: 39 Infant gender: Female presentation: vertex position: Right Occiput Anterior Placenta delivery description: Spontaneous Cord Vessel Description: 3 Vessels score one minute: 9 score five minutes: 9
--- NOTE | 2023-07-03 10:20 | PM.DS ---
DS: Admitting Diagnosis Discharge Date 07/04/2023 Admitting Diagnosis term DS: Discharge Diagnosis Discharge Diagnosis (1) Term : Code(s): Z34.90 - Encounter for supervision of normal , unspecified, unspecified trimester Status: Acute DS: Summary Hospital Course Reason for hospitalization: patient was admitted at 39 weeks for induction of labor on 07/03/2023 Hospital Course: patient underwent spontaneous vaginal delivery with epidural anesthesia on 07/03/2023. Her hospital course unremarkable. She remained afebrile. She was up, voiding without difficulty, eating regular diet, ambulating, generally without complaints. Time Spent with Patient Time attestation: Total time spent providing and/or coordinating discharge services: Exam Const: General: cooperative, healthy appearing and comfortable Nutritional Appearance: average body habitus Orientation/consciousness: oriented to person, oriented to place and oriented to time HENMT: Head: normal to inspection Resp: Effort & Inspection: normal respiratory effort Cardio: Rate: regular rate Rhythm: regular rhythm Heart sounds: S1 normal heart sound present and S2 normal heart sound present GI: Inspection: normal to inspection DS: Data Data Completed and Pending Labs on day of discharge: Labs from last 24 hours 07/03/23 07/03/23 09:24 05:36 WBC 11.0 H RBC 3.35 L Hgb 10.5 L Hct 32.3 L MCV 96.4 MCH 31.3 MCHC 32.5 RDW 14.1 Plt Count 208 MPV 10.7 H Immature Gran % (Auto) 0.7 H Neut % (Auto) 58.2 Lymph % (Auto) 27.3 [place] % (Auto) 11.4 H Eos % (Auto) 1.9 Baso % (Auto) 0.5 Lymph # (Auto) 3.01 [place] # (Auto) 1.3 H Eos # (Auto) 0.2 Baso # (Auto) 0.1 Abs Immat Gran (auto) 0.08 H Absolute Neuts (auto) 6.4 Absolute Nucleated RBC 0.0 Nucleated RBC % 0.0 Urine Opiates Screen Negative Urine Methadone Screen Negative Ur Barbiturates Screen Negative Ur Phencyclidine Scrn Negative Ur Amphetamine Screen Negative U Benzodiazepines Scrn Negative Urine Cocaine Screen Negative U Cannabinoids Screen Positive A RPR Pending Blood Type B Positive Antibody Screen Negative Discharge Plan Discharge Attending physician on discharge: Guerrero Steiner Discharging Clinician: Guerrero Steiner Patient Disposition: Home, Self-Care Activity: may shower and pelvic rest Diet: heart healthy Wound Care Instructions: follow printed instructions Patient Instructions: Antibiotic Form Stand Alone Forms: General Discharge Information Follow-up/Referrals: Guerrero Steiner MD [Physician] - Discharge Medications: No Action Pre-Malena Multivitamins/Minerals 27-1-300 mg Capsule 1 cap PO HS ondansetron 4 mg Tablet,Disintegrating 4 mg PO Q6H PRN (Reason: Nausea And Vomiting) Date of admission: 07/03/23 04:52 Primary Care Provider: Dejuan,Jing Lynn Admitting Provider: Guerrero Steiner Attending physician on admission: Guerrero Steiner Condition: Stable
[2023-07-03] MEDS: OXYTOCIN 30 UNITS/NS 500 ML 30 UNITS/500 ML BAG 125 UNITS IV CONT (10:48)
--- NOTE | 2023-07-03 13:06 | PC.NURSE ---
Patient transferred to post room #284 via wheelchair. Support person present. Oriented to unit, room, information board, rooming in, admission packet and security measures. Patient verbalizes understanding.
[2023-07-03 14:01] LABS: Rapid Plasma Reagin Non-Reactive (NonReactive)
--- NOTE | 2023-07-03 15:52 | PC.NURSE ---
1520 Introductions were made, then consulted with patient to assess needs related to . This is mom's third child and she has breastfed previously. Mother led the conversation with her?plans to feed?her and the?experience so far. Encouraged understanding of the benefits of skin to skin (demonstrating unwrapping and placing upright on her chest), stimulating with massage touch, changing positions to encourage wakefulness, how to watch for early feeding cues, responsive feeding, feeding on demand (aiming for 8-12 times in 24 hours, about every 2-3 hours), milk production, building/maintaining a milk supply, duration of feeding, signs of adequate intake/output and how to record on the feeding sheet. Mother works well with her infant with encouragement and education. Reviewed positioning and ear, shoulder, hip alignment, supporting the breast to facilitate a deep latch, asymmetrical latch (off-center), leading with the chin with a big, open, wide gape and body close to mother. latched optimally to the both breasts in cross cradle position. Education given to the mother of how to visualize the suckling (with good rocking jaw motion), swallows (dropping of the lower jaw) and how to listen for drinking at the breast (the ka sound). Infant was able to maintain latch without pain to mother protecting the nipple with optimal positioning and latching. Reviewed comfort measures of healing with a warm, wet washcloth to rinse breast, then leave open to air-dry, good handwashing when or touching the breast/nipples to prevent infection. Mother voiced understanding of skin to skin, stimulating with massage touch, responsive feedings, hand expressed colostrum, talking to to encourage if it has been 2 -2.5 hours since the start of the last , to call if infant does not latch, or if there is discomfort with . Resources used for education were facilitated with the mom and baby guide, name written on the communication board. Parents voiced understanding of information, demonstrated learning and will call if there is a request for assistance. Reported to the Primary RN.
[2023-07-04] MEDS: IBUPROFEN 600 MG TABLET PO (01:42)
[2023-07-04 04:30] VITALS: BP 99/66; PULSE 64; RESP 16; TEMP 37.2; O2SAT 98
[2023-07-04] MEDS: WITCH HAZEL 40 PADS 1 PAD TOPICAL (04:38)
[2023-07-04] MEDS: BENZOCAINE 20% AER SPR (*SP) 56 GM CAN 1 SPRAY TOPICAL (04:38)
[2023-07-04 04:49] LABS: Hematocrit 31.4 % (37.0-47.0); Hemoglobin 10.2 g/dL (12.0-15.0)
[2023-07-04 07:15] VITALS: BP 95/65; PULSE 62; RESP 16; TEMP 36.6; O2SAT 100
--- NOTE | 2023-07-04 08:18 | PM.OBPNVD ---
OB - PN: Subj Subjective Date/time seen: 07/04/23 08:18 Patient comments: no complaints and pain well controlled baby status: doing well OB - PN: Obj Data Labs 07/04/23 04:24 Labs: Laboratory Results - last 24 hr 07/03/23 07/03/23 07/04/23 05:36 09:24 04:24 Hgb 10.2 L Hct 31.4 L Urine Opiates Screen Negative Urine Methadone Screen Negative Ur Barbiturates Screen Negative Ur Phencyclidine Scrn Negative Ur Amphetamine Screen Negative U Benzodiazepines Scrn Negative Urine Cocaine Screen Negative U Cannabinoids Screen Positive A RPR Non-reactive OB - PN A/P Plan day: 1 Plan: routine care, discharge home and follow up 6 weeks Time Spent With Patient Time: Total time spent is greater than 50% in coordination of care (as documented) at patient's floor/unit and/or counseling patient: Time with patient: less than 15 minutes Exam Const: General: cooperative, healthy appearing and comfortable Nutritional Appearance: average body habitus Orientation/consciousness: oriented to person, oriented to place and oriented to time Resp: Effort & Inspection: normal respiratory effort Cardio: Rate: regular rate Rhythm: regular rhythm Heart sounds: S1 normal heart sound present and S2 normal heart sound present GI: Inspection: normal to inspection
[2023-07-04] MEDS: MULTIVIT/MIN/PREN/FOL AC/IRON TABLET 1 TAB PO (08:48)
--- NOTE | 2023-07-04 11:00 | PC.NURSE ---
Patient viewed the discharge video Mother & Baby Care, The First Two Weeks . Patient was given the opportunity and encouraged to ask questions. Patient verbalized understanding of information shared and has been given the mother/baby guide for home reference.
[2023-07-06 09:18] VITALS: BP 91/59; PULSE 64; RESP 18; TEMP 36.6; O2SAT 100
== END 2023-07-04 13:15 | disposition home or self-care (01) | DRG 560 ==
LOC: ANHLDR 10:22 → ANHOB2 13:08
PROVIDERS: Admitting Provider Obstetrics & Gynecology; PCP Hospitalist; Visit Provider Obstetrics & Gynecology
DX: O80 Encounter for full-term uncomplicated delivery (principal); Z37.0 Single live birth; Z3A.39 39 weeks gestation of pregnancy; Z23 Encounter for immunization
CPT/HCPCS: 36415; 80307; 85014; 85018; 85025; 86592; 86850; 86900; 86901; 90471; 90686; A9270; G0008; J2590; J2795; J7120